=== PATIENT | female | born 1945 | race Caucasian/White ===

== ENCOUNTER 2021-07-18 10:30 | Outpatient (RCR) | payer MEDICARE, SELFPAY ==
--- NOTE | 2021-05-30 13:51 | PTOPEVAL ---
PHYSICAL THERAPY INITIAL EVALUATION. Thank you for referring Roxy Garner to [facility].? The patient is scheduled to be seen for therapy? 1x/week for 4 weeks. Please review, sign, date and return this plan of care CHRISTO. I agree with and certify that the following plan of care is medically necessary. Referring Physician Date Attending Provider: Betsy Mendoza, PLOW MECHANIC-C *PT Outpatient Evaluation Start: 05/30/21 Evaluation Information Diagnosis Gait abnormalities Onset 2 months Subjective Information Pt states around [place] she Query Text:As Reported By Patient/ got really sick from what she Family thinks was food poisoning, she was so sick she said she could not move. After that she got bronchitis, a sinus infection, and pink eye increasing her weakness even more. Pt states they decreased her water pill and since then she has been orthostatic. Pt states she has always been independent in daily life, could carry in heavy groceries . Pt states bending over to get something out of a low drawer or cabinet she is afraid she cannot get back up. Around [place] she was able to carry a basket of laundry downstairs without any issues. Pts weight has been around 90 pounds, she went down to 60s, now holding in 70 pounds. Pain Assessment 0 Pain Score Pain Score 0: Self Report Lower Extremity Range of Motion General Lower Extremity Range of Motion WFL/Left,WFL/Right Lower Extremity Muscle Strength Testing Gross Lower Extremity Strength Grossly 4-/5 in B LE Of note: decreased strength in hip flexion, extension, abduction, and knee flexion Muscle Length Testing Muscle Length Testing Right Prone Knee Flexor Muscle Length 90 Left Prone Knee Flexor Muscle Length 90 Balance Assessment Timed Up and Go Test (TUG) (Seconds) 8 Assistive Devices None 5 Time Sit to Stand Time in Seconds 13 5 Time Sit to Stand Comments Without the use of UEs Gait Assessment Gait Pattern Narrow Based Gait Other Gait Observations Pt has an increased g
--- NOTE | 2021-06-26 16:04 | PCPTNOTE ---
Patient called & cancelled scheduled re-evaluation this date due to no transportation. She is going to call back to reschedule.
--- NOTE | 2021-07-18 11:11 | PTOPEVAL ---
PHYSICAL THERAPY PROGRESS REPORT AND DISCHARGE SUMMARY. Thank you for referring Roxy Garner to [facility].? The patient is to be discharged from skilled physical therapy services . Please review, sign, date and return this plan of care CHRISTO. I agree with and certify that the following plan of care is medically necessary. Referring Physician Date Attending Provider: Betsy Mendoza, SHOEMAKER APPRENTICE-C Evaluation Information Diagnosis Gait abnormalities Onset 2 months Subjective Information Pt states she thinks she is Query Text:As Reported By Patient/ doing well. She was able to go Family to the grocery store with her daughter yesterday and walk around the store. Pt states she has been able to walk up and down the stairs. Pt was able to help her family cook Easter dinner. Pain Assessment Pain Score 0: Self Report Lower Extremity Range of Motion General Lower Extremity Range of Motion WFL/Left,WFL/Right Lower Extremity Muscle Strength Testing General Lower Extremity Strength WFL/Left,WFL/Right Gross Lower Extremity Strength Grossly 4+/5 in B LE Muscle Length Testing Right Prone Knee Flexor Muscle Length 120 Left Prone Knee Flexor Muscle Length 120 Gait Assessment Total Distance Walked (feet) 385 2 Minute Walk Gait Speed Score (feet/ 3.20 second) PT Clinical Summary Roxy presents to therapy today for her progress report following 2 therapy visits and at home participation in a home exercise program and daily walking program. Today she demonstrates improvement in her strength, function, and endurance. She reports 90% improvement in return to baseline function. She has met all of her functional goals at this time. She is to be discharged from skilled physical therapy services at this time with instructions to continue her HEP and walking program, and to follow up with her referring provider if any new symptoms occur. PT Services Indicated No Treatment Frequency and Duration to be discharged
== END 2021-07-18 16:22 | disposition home or self-care (01) ==
LOC: ANHPT 10:30
PROVIDERS: PCP Internal Medicine; Visit Provider Nurse Practitioner
DX: R26.89 Other abnormalities of gait and mobility (principal)
CPT/HCPCS: 97110; 97161

== ENCOUNTER 2021-09-23 02:09 | Inpatient (IN) | payer MEDICARE, SELFPAY ==
[2021-09-23] VITALS (52 sets, daily range): BP systolic 98–165; BP diastolic 40–135; PULSE 83–136; RESP 14–43; TEMP 35.9–36.5; O2SAT 75–100; BMI 23.2
--- NOTE | 2021-09-23 | ECHO_ITS ---
Patient Info Name: Roxy Garner Age: 76 years : 1945 Gender: Female Ht: 61 in Wt: 122 lbs BSA: 1.55 m2 HR: 88 bpm BP: 117 / 40 mmHg Heart Rhythm: Sinus Rhythm Technical Quality: Good Exam Date: 09/23/2021 2:58 PM Exam Location: [facility] Pulmonary Exam Room: 203 Patient Status: Inpatient Admit Date: 09/23/2021 Staff Ordering Physician: Lina Butts DO Customer Training Specialist: Sunni Freeman RDCS Attending Provider: Darlene Grewal MD Referring Physician: Beckie COLBERT; Exam Type: CA echo doppler color flow Study Info Indications - heart failure Complete two-dimensional, color flow and Doppler transthoracic echocardiogram is performed. Summary 1. Complete two-dimensional, color flow and Doppler transthoracic echocardiogram is performed. 2. Left ventricular chamber dimension is moderately enlarged. 3. Left ventricular systolic function is severely reduced, estimated at 25-30%. 4. Left atrial chamber dimension is mildly enlarged. 5. There is moderate aortic valve regurgitation. 6. There is mild mitral valve regurgitation. Left Ventricle Left ventricular chamber dimension is moderately enlarged. Left ventricular systolic function is severely reduced, estimated at 25-30%. The left ventricular diastolic function is grade I diastolic dysfunction. Right Ventricle Right ventricular chamber dimension is normal. Left Atria Left atrial chamber dimension is mildly enlarged. Right Atria Right atrial chamber dimension is normal. Aortic Valve The aortic valve is trileaflet. There is mild aortic valve sclerosis. There is moderate aortic valve regurgitation. Pulmonic Valve The pulmonic valve is normal. There is mild pulmonic regurgitation. Mitral Valve The mitral valve has normal leaflets. There is mild mitral valve regurgitation. Tricuspid Valve The tricuspid valve leaflets are normal. Pericardium/Pleural The pericardium appears normal. Aorta The aortic root size at the sinus of Valsalva is normal. Left Ventricular Outflow Tract Name Value Normal LVOT 2D LVOT Diameter 2.0 cm LVOT Doppler LVOT Peak Gradient 3 mmHg LVOT Mean Gradient 1 mmHg LVOT VTI 16 cm LVOT VTI/AV VTI Ratio 0.9 LVOT Stroke Volume 49 ml LVOT CO 10.3 l/min LVOT CI 6.6 l/min/m2 Pulmonic Valve Name Value Normal PV Doppler PV Peak Gradient 2 mmHg Mitral Valve Name Value Normal MV Doppler
--- NOTE | ~2021-09-23 | US_ITS ---
US venous doppler [facility] DATE: 09/23/2021 13:12 INDICATION: Swelling of the lower extremities TECHNIQUE: Real-time and color flow imaging and Doppler analysis of the veins of the lower extremitie s COMPARISON: None FINDINGS: The greater saphenous veins are patent. There is spontaneous and phasic flow and normal aug mentation and color flow signal and normal compression of the deep veins of both lower extremities. IMPRESSION: Negative examination Reviewed, dictated and finalized at [facility]. Reviewed, dictated and finalized at location B. IMPRESSION: Negative examination
--- NOTE | ~2021-09-23 | XR_ITS ---
EXAMINATION: XR chest 1V portable DATE: 09/23/2021 03:08 INDICATION: Dyspnea TECHNIQUE: frontal view of the chest was obtained. COMPARISON: Chest radiograph dated 01/10/2016 FINDINGS: . Hyperexpansion of lungs are clear consistent with emphysema better appreciated on prior CT dated 07/01/2016. Diffuse patchy airspace opacities throughout both lungs relatively sparing the left apex. Mor e dense opacities at the left lower lung zone and right costophrenic angle suggesting small right and [id number] left pleural effusions. Calcified nodule in the right lower lung zone with multipl e splenic calcifications consistent with old granulomatous disease. The cardiomediastinal silhouette is within normal limits for AP technique. IMPRESSION: 1. Diffuse bilateral lung disease which could represent pneumonia or pulmonary edema. 2. More dense opacities at the bilateral lower lung zones which could represent small to moderate lef t and small right pleural effusion, atelectasis, pneumonia or some combination thereof. 3. Emphysema. Reviewed, dictated and finalized at location A. IMPRESSION: 1. Diffuse bilateral lung disease which could represent pneumonia or pulmonary edema. 2. More dense opacities at the bilateral lower lung zones which could represent small to moderate left and small right pleural effusion, atelectasis, pneumoni a or some combination thereof. 3. Emphysema.
--- NOTE | ~2021-09-23 | XR_ITS ---
EXAMINATION: XR chest 1V portable DATE: 09/26/2021 06:01 INDICATION: Congestive heart failure TECHNIQUE: frontal view of the chest was obtained. COMPARISON: Chest radiograph dated 09/23/2021 FINDINGS: Persistent elevation of the left mid diaphragm. Significant improvement in prior extensive interstiti al and airspace opacities throughout the right lung with mild residual reticular opacities at the per ipheral right upper lung zone and along the right lung base. More prominent but still improved opacit ies in the left lower lung zone. Decreasing small bilateral pleural effusions with blunting at costop hrenic angles. Underlying emphysema with hyperexpansion of lungs, more prominent on the right with re lative elevation the left hemidiaphragm. Calcified nodule at the right lung base and several small sp lenic calcifications likely consistent with old granulomatous disease. No pneumothorax. The cardiomed iastinal silhouette is normal. IMPRESSION: 1. Significant improvement in diffuse bilateral interstitial and airspace opacities with residual opa cities most prominent in the left lower lung zone which could represent pulmonary edema, pneumonia, a telectasis or some combination thereof. 2. Decreasing small bilateral pleural effusions. 3. Emphysema. Reviewed, dictated and finalized at location A. IMPRESSION: 1. Significant improvement in diffuse bilateral interstitial and airspace opaci ties with residual opacities most prominent in the left lower lung zone which c ould represent pulmonary edema, pneumonia, atelectasis or some combination ther eof. 2. Decreasing small bilateral pleural effusions. 3. Emphysema.
--- NOTE | ~2021-09-23 | US_ITS ---
EXAMINATION: US arterial ankle brachial ind DATE: 09/23/2021 12:37 INDICATION: Loss of pulses in the lower extremities with cool feet and peripheral vascular disease ri sk factors of hypertension, heart failure and prior smoking. TECHNIQUE: Segmental pressures and plethysmographic and Doppler waveforms of the brachial and lower e xtremity arteries were obtained. COMPARISON: None. FINDINGS: Right and left brachial artery pressures of 130 mm Hg and 140 mm Hg, respectively, are concordant (no rmal difference <= 30 mmHg). The right ankle-brachial index (JEANIE) is 0.44 (normal >= 0.9-1.0). The right great toe-brachial index (TBI) is 0.26 (normal >= 0.65). Arterial Doppler waveforms are biphasic with brisk systolic upstrokes at both right posterior tibial and dorsalis pedis arteries. The left JEANIE is 0.44. The left TBI is 0.26. Arterial Doppler waveforms are biphasic with brisk systol ic upstrokes at both left posterior tibial and dorsalis pedis arteries. IMPRESSION: 1. Arterial occlusive disease to the bilateral lower limbs with severely decreased bilateral ABIs and TBIs. Reviewed, dictated and finalized at location A. IMPRESSION: 1. Arterial occlusive disease to the bilateral lower limbs with severely decrea sed bilateral ABIs and TBIs.
--- NOTE | 2021-09-23 02:21 | ECG_ITS ---
Measurements Intervals [place] Rate: 103 P: [place]: 0 QRS: -61 QRSD: 139 T: 116 QT: 329 QTc: 431 Interpretive Statements SINUS RHYTHM WITH FREQUENT AND CONSECUTIVE PVCS INTRAVENTRICULAR CONDUCTION DELAY WITH REPOLARIZATION ABNORMALITY ABNORMAL ECG NO PREVIOUS ECG AVAILABLE FOR COMPARISON Electronically Signed On 09-23-2021 7:22:04 CDT by Haider Joel M.D.
--- NOTE | 2021-09-23 02:22 | ED.GENADULT ---
HPI - General Adult General Chief complaint: Shortness of Breath/Dyspnea Stated complaint: shortness of breath Time Seen by Provider: 09/23/21 02:14 History of Present Illness HPI narrative: Patient 76-year-old female who presents emergency department with chief complaint of shortness of breath. Patient called EMS this evening after she was having severe shortness of breath was found to be extremely tachypneic and not open to provide much history. Per records the patient has an EF in the 30s and has significant congestive heart failure history. The patient denies pain Related Data Allergies Allergy/AdvReac Type Severity Reaction Status Date / Time ciprofloxacin Allergy Mild Nausea and Verified 05/21/21 14:00 Vomiting codeine Allergy Unknown Congested Verified 05/21/21 14:00 Sulfa (Sulfonamide Allergy Unknown Photosensit Verified 05/21/21 14:00 Antibiotics) ivity Review of Systems Review of Systems: A 10 system review of systems was completed on the patient and is negative except for what is stated in the HPI. Nursing and ancillary documentation was reviewed. [facility] Past Medical History Medical History Endometrial thickening on ultrasound Surgical History Surgical History H/O dilation and curettage Family History Family History Sibling Family history of elevated blood lipids Acute myocardial infarction Mother Family history of diabetes mellitus in first degree relative Diabetes mellitus Social History Social History Smoking packs per day: 0.5 Smoking cigarettes per day: 10.0 Years smoked: 30 Smoking pack-years: 15.00 Smoking status: Former smoker Tobacco type: cigarettes Second hand tobacco smoke exposure: Yes Smoking end date: 03/30/21 Alcohol intake: never Substance use: never Substance use type: does not use Exam Narrative: GENERAL: Ill-appearing thin and cachectic mottled diaphoretic appears to be in moderate HEAD: Normocephalic, atraumatic. EYES: PERRLA and EOMI. ENT: Nares clear, no rhinorrhea or epistaxis. Mucous membranes moist. NECK: Supple. CHEST: Moderate respiratory distress crackles present bilaterally HEART: Tachycardic rate and rhythm. No murmur heard. Normal peripheral pulses. ABDOMEN: Soft, nontender, nondistended, normal active bowel sounds. EXTREMITIES: Normal range of motion. No edema. SKIN: Diaphoretic mottled. NEURO: No focal deficits. Alert and oriented x3. PSYCH: Normal mood and affect. Course Vital Signs Vital signs: Vital Signs Pulse Rate 107 H 09/23/21 02:14 Respiratory Rate 36 H 09/23/21 02:14 Pulse Oximetry 75 L 09/23/21 02:14 Oxygen Delivery Room Air 09/23/21 02:14 Pulse Rate 107 H 09/23/21 02:14 Respiratory Rate 36 H 09/23/21 02:14 Pulse Oximetry 75 L 09/23/21 02:14 Oxygen Delivery Room Air 09/23/21 02:14 Medical Decision Making Vital Signs Vital Signs: Vital Signs Pulse Rate 107 H 09/23/21 02:14 Respiratory Rate 36 H 09/23/21 02:14 Pulse Oximetry 75 L 09/23/21 02:14 Oxygen Delivery Room Air 09/23/21 02:14 Pulse Rate 107 H 09/23/21 02:14 Respiratory Rate 36 H 09/23/21 02:14 Pulse Oximetry 75 L 09/23/21 02:14 Oxygen Delivery Room Air 09/23/21 02:14 Lab Data Result diagrams: 09/23/21 02:44 09/23/21 02:44 Labs: Lab Results 09/23/21 09/23/21 09/23/21 Range/Units 02:29 02:44 02:44 WBC 10.1 H (4.5-10.0) K/mm3 RBC 5.63 H (4.2-5.4) M/mm3 Hgb 17.4 H (12.0-15.0) g/dL Hct 55.5 H (37.0-47.0) % MCV 98.6 (80-100) fl MCH 30.9 (26-34) pg MCHC 31.4 L (32-36) g/dl RDW 12.9 (11.5-14.5) % Plt Count 154 (150-375) k/mm3 MPV 10.3 (7.4-10.4) fl Immatu
[2021-09-23 02:51] LABS: Basophils Absolute Auto 0.1 K/mm3 (0.0-0.1); Basophils Percent Auto 0.7 % (0.2-1.2); Eosinophils Absolute Auto 0.1 K/mm3 (0-0.3); Eosinophils Percent Auto 0.7 % (0-4.4); Hematocrit 55.5 % (37.0-47.0); Hemoglobin 17.4 g/dL (12.0-15.0); Lymphocytes Absolute Auto 5.97 K/mm3 (0.9-3.2); Lymphocytes Percent Auto 59.4 % (18.3-44.2); Mean Corpuscular HGB Conc 31.4 g/dl (32-36); Mean Corpuscular Hemoglobin 30.9 pg (26-34); Mean Corpuscular Volume 98.6 fl (80-100); Mean Platelet Volume 10.3 fl (7.4-10.4); Monocytes Absolute Auto 0.4 K/mm3 (0.1-0.6); Monocytes Percent Auto 3.9 % (2.6-8.5); Neutrophils Absolute Auto 3.4 K/mm3 (1.3-6.7); Neutrophils Percent Auto 33.3 % (45.5-73.1); Platelet Count Result 154 k/mm3 (150-375); Red Blood Count 5.63 M/mm3 (4.2-5.4); Red Cell Distribution Width 12.9 % (11.5-14.5); White Blood Count 10.1 K/mm3 (4.5-10.0)
[2021-09-23 03:00] LABS: INR 1.2; Prothrombin Time 14.4 Seconds (11.1-14.7)
[2021-09-23 03:02] LABS: Alanine Aminotransferase 25 U/L (6-35); Albumin Level 4.1 g/dL (3.5-5.1); Alkaline Phosphatase 73 U/L (38-126); Anion Gap 13 mmol/L (8-16); Aspartate Amino Transferase 30 U/L (14-36); Bilirubin,Total 1.5 mg/dL (0.2-1.3); Blood Urea Nitrogen 12 mg/dL (7-17); Calcium 9.1 mg/dL (8.4-10.2); Carbon Dioxide 21 mmol/L (22-30); Chloride 103 mmol/L (98-107); Estimated Glomerular Filt Rate 48; Glucose 282 mg/dL (65-110); Magnesium 2.3 mg/dL (1.6-2.3); Sodium 137 mmol/L (137-145)
[2021-09-23] MEDS: NITROGLYCERIN OINTMENT 1 INCH DOSE TRANSDERM ×5 (03:08→23:07)
[2021-09-23] MEDS: FUROSEMIDE INJ 40 MG/4 ML VIAL IV PUSH ×3 (03:08→20:44)
[2021-09-23] MEDS: ALBUTEROL SULFATE NEB 2.5 MG/3 ML INH (03:10)
[2021-09-23] MEDS: IPRATROPIUM BR 0.02% INH SOLN 0.5 MG/2.5 ML VIAL (03:10)
[2021-09-23 03:14] LABS: NT Pro B Type Natriuretic Pept 16200 pg/mL (5-100); Troponin I 0.032 ng/mL (0.000-0.034)
[2021-09-23 03:20] LABS: Alveolar/Arterial O2 Gradient 350.9 mmHg; Base Excess ABG -14.8 mEq/l (+/-2.0); Fractional Inspired Oxygen 100 %; HCO3 ABG 15.5 mEq/l (22.0-26.0); Oxygen Content ABG 25.5 %vol (16.0-22.0); Oxygen Saturation ABG 99.5 % (95.0-100.0); Oxyhemoglobin 98.6 % THb (90.0-100.0); PO2 ABG 309.1 mmHg (80.0-100.0); PO2 FiO2 Ratio Arterial Blood 3.09 %; Total Hemoglobin 17.9 g/dL (12.0-18.0)
[2021-09-23 03:22] LABS: Site Drawn LEFT BRACHIAL; pH ABG 7.085 (7.350-7.450)
[2021-09-23 03:23] LABS: Device NON-INVASIVE VENT; Non-Invasive Expiratory Pressure 5 CMH2O; Non-Invasive Inspiratory Pressure 10 CMH2O; Non-Invasive Vent Rate 16 /MIN
[2021-09-23 03:27] LABS: SARS-CoV-2 RNA PCR Negative
[2021-09-23 05:14] LABS: Appearance Urine Clear (Clear); Bilirubin Urine Negative (Negative); Blood Urine Trace-lysed (Negative); Color Urine Yellow (Yellow); Glucose Urine UA Trace mg/dL (Negative); Ketones Urine Negative (Negative); Leukocyte Esterase Ur Negative LEU/UL (Negative); Nitrate Urine Negative (Negative); Protein Urine 1+ mg/dL (Negative); Urobilinogen Urine 0.2 mg/dL (<2.0); pH Urine 5.5 (5.0-9.0)
[2021-09-23 05:17] LABS: Mucus Urine Rare /lpf; RBC Urine 0-2 /hpf (0-2); Squamous Epithelial Cell Urine Rare /hpf (Few)
[2021-09-23 05:18] LABS: Add Urine Microscopic? YES
[2021-09-23 05:48] LABS: Lactic Acid Reflex 3.1 mmol/L (0.7-2.0)
--- NOTE | 2021-09-23 06:38 | PC.NURSE ---
This patient, Roxy Garner, was admitted to IMU Room 203-01. Patient/family oriented to hospital policies and general routines including ID bracelet, bed and alarms, visiting hours, pain management, procedures, bathroom and other care routines, personal items, smoking policy, room service/diet, and visiting hours. Information on how to activate the Rapid Response Team has been discussed. Patient/Family are encouraged to report perceived risks to care and to ask questions if they do not understand what they are told or what they should do.
--- NOTE | 2021-09-23 07:29 | ECG_ITS ---
Measurements Intervals [place] Rate: 90 P: 11 MA: 118 QRS: -20 QRSD: 92 T: -14 QT: 403 QTc: 495 Interpretive Statements SINUS RHYTHM WITH FREQUENT VENTRICULAR PREMATURE COMPLEXES VOLTAGE EVIDENCE OF LEFT VENTRICULAR HYPERTROPHY COMPARED TO ECG 09/23/2021 02:28:51 LESS VENTRICULAR ECTOPIC ACTIVITY Electronically Signed On 09-23-2021 15:46:42 CDT by Haider Joel M.D.
[2021-09-23] MEDS: IPRATROPIUM BR 0.02% INH SOLN 0.5 MG/2.5 ML VIAL INHALATION ×3 (07:54→20:47)
[2021-09-23] MEDS: ALBUTEROL SULFATE NEB 2.5 MG/3 ML INH 5 MG INHALATION ×3 (07:54→20:47)
[2021-09-23 08:35] LABS: Reflex Lactic Acid Yes or No Add Lactic
[2021-09-23 09:10] LABS: Alveolar/Arterial O2 Gradient 165.5 mmHg; Base Excess ABG -0.9 mEq/l (+/-2.0); Fractional Inspired Oxygen 40 %; HCO3 ABG 22.3 mEq/l (22.0-26.0); Modified Allen's Test Pass; Oxygen Content ABG 22.6 %vol (16.0-22.0); Oxygen Saturation ABG 96.5 % (95.0-100.0); Oxyhemoglobin 95.7 % THb (90.0-100.0); PCO2 ABG 33.3 mmHg (35.0-45.0); PO2 ABG 81.4 mmHg (80.0-100.0); PO2 FiO2 Ratio Arterial Blood 2.04 %; Site Drawn RIGHT RADIAL; Total Hemoglobin 16.8 g/dL (12.0-18.0); pH ABG 7.443 (7.350-7.450)
[2021-09-23 09:11] LABS: Device BIPAP
[2021-09-23 09:12] LABS: Expiratory Pressure 5 cmH2O; Inspiratory Pressure 10 cmH2O
[2021-09-23 09:48] LABS: Lactic Acid 2.5 mmol/L (0.7-2.0)
[2021-09-23 10:06] LABS: Troponin I 0.932 ng/mL (0.000-0.034)
--- NOTE | 2021-09-23 11:07 | PC.NURSE ---
Patient consents for all medical information be given to Chantal Cedeno.
--- NOTE | 2021-09-23 13:10 | PC.NURSE ---
Notified Dr. Butts of Patient Ankle Brachial Index.
--- NOTE | 2021-09-23 13:25 | PM.CNCAR ---
Assessment and Plan Assessment and plan (1) Acute exacerbation of CHF (congestive heart failure): Code(s): I50.9 - Heart failure, unspecified Status: Acute (2) Chronic combined systolic and diastolic heart failure: Code(s): I50.42 - Chronic combined systolic (congestive) and diastolic (congestive) heart failure Status: Acute Plan This is a 76-year-old lady known to have cardiomyopathy and valvular heart disease with chronic aortic regurgitation. She enters the hospital with significant dyspnea and respiratory acidosis requiring placement on a BiPAP device in the middle of the night. This has helped significantly she is no longer acidemic and appears to be comfortable other than complaining about the mask. She is receiving some intravenous furosemide which I think is appropriate she does sound somewhat congested on exam. Undoubtedly she also has significant underlying lung disease with many years of smoking which she has fortunately quit. This patient SI stated above is known to have significant aortic valve regurgitation but I do not believe she is reasonable candidate for aortic valve replacement. We will treat therefore continue to treat her medically. I will obtain an echocardiogram today and determine other reasonable medical adjustments. Now that she is in the hospital she would probably benefit from titrating her medications to optimal guideline directed medical therapy. She has been resistant to this in the past. There is significant concern being expressed on the floor and apparently by the hospitalist that she may have acute arterial insufficiency of the lower extremities. By physical exam she clearly has lower extremity vascular disease however she is not complaining of leg pain and does not appear to have a critical limb ischemia by physical exam Haider Joel MD [facility] History of Present Illness History of Present Illness Consult date/time: 09/23/21 13:25 Consult reason: shortness of breath Reason For Visit: Acute Congestive Heart Failure Exacerbation Narrative: This is a 76-year-old woman I am seeing at the request of the hospitalist because of decompensated congestive heart failure. This is a patient I have been following in my office for a while who has a dilated cardiomyopathy and significant aortic valve regurgitation. She has been followed for a number of years on relatively minimal medical therapy including low doses of carvedilol, ramipril and spironolactone. She has been stable for a number of years on these medications and up titration of her doses was discussed and recommended but she had been resistant to any of that. She also has a history of chronic cigarette smoking having quit recently and has evidence of emphysema on chest x-rays in the past. The patient is extremely thin and frail. It was my recommendation when I saw her initially and since then that she is not a acceptable candidate for aortic valve surgery. We understand that she does have LV dysfunction and significant aortic regurgitation but it did not feel like it was reasonable to consider her a candidate for aortic valve replacement. She was seen in my office as recently as 08/22/2021 at which time she did not offer any cardiovascular complaints and was feeling well. Her daughter is in the room with her at this time says that just this past weekend she was shopping with the patient and she was walking through stores without any difficulty with breathing. She came into the emergency room at 2:00 a.m. in the morning last night because of severe shortness of breath and respiratory extremis. She was very acidemic with a pH of 7.0 with acute respiratory acidosis and she was treated with a BiPAP noninvasive ventilator and some furosemide IV. She was admitted to the IMU for further evaluation and management. The BiPAP is in place and she reports the mask is uncomfortable but she does not appear to be having any air hunger at this time.
--- NOTE | 2021-09-23 13:29 | PC.NURSE ---
Patient has absent foot pulses, notified Dr. Butts and Dr. Joel. Patient is not complaining of pain, Bilateral legs and feet are warm to touch and have normal color, no swelling detected. Patient denies loss of sensation.
--- NOTE | 2021-09-23 18:42 | PM.IMHP ---
H&P: HPI History of Present Illness Date/Time: 09/23/21 18:42 Chief Complaint: 68-year-old female with past medical history significant for COPD, cardiomyopathy with valvular heart disease including aortic regurgitation is presenting to the hospital with shortness of breath and fatigue. In the ER, she was found to have elevated troponin, elevated BNP, she was acidotic on ABG and started on BiPAP, ECG mildly abnormal with T-wave inversions. Cardiology was consulted and states that her EF is likely 25-30% and anticipate starting Entresto while she is inpatient as well as IV diuresis with Lasix. Patient denies chest pain at this time. No fevers or chills. No sick contacts or recent travel. No nausea vomiting or diarrhea. No abdominal pain. No dysuria or suprapubic tenderness. Once on the floor, nursing staff noted difficulty getting Doppler pulses. ABIs were ordered and showed severe vascular disease. Of note, patient's family is in room and states that she was being weaned off of Aldactone on an outpatient basis. Apparently she was experiencing orthostatic hypotension. Review of Systems Review of Systems: 12 point review of systems was assessed and was negative except as noted in the HPI [facility] Past Medical History Medical History Endometrial thickening on ultrasound Surgical History Surgical History H/O dilation and curettage Family History Family History Sibling Family history of elevated blood lipids Acute myocardial infarction Mother Family history of diabetes mellitus in first degree relative Diabetes mellitus Social History Social History Smoking packs per day: 0.5 Smoking cigarettes per day: 10.0 Years smoked: 30 Smoking pack-years: 15.00 Smoking status: Former smoker Tobacco type: cigarettes Second hand tobacco smoke exposure: Yes Smoking end date: 03/30/21 Alcohol intake: never Substance use: never Substance use type: does not use Spiritual care concerns: No Meds Home Medications and Allergies Home Medications Medication Instructions Recorded Confirmed Type spironolactone 25 mg tablet See Rx Instructions .Route 07/19/21 09/23/21 Rx .COMPLEX #45 tabs carvedilol 3.125 mg tablet 3.125 mg PO Q12H #180 tabs 09/10/21 09/23/21 Rx ramipril 2.5 mg capsule See Rx Instructions .Route 09/10/21 09/23/21 Rx .COMPLEX #90 caps Allergies Allergy/AdvReac Type Severity Reaction Status Date / Time ciprofloxacin Allergy Mild Nausea and Verified 05/21/21 14:00 Vomiting codeine Allergy Unknown Congested Verified 05/21/21 14:00 Sulfa (Sulfonamide Allergy Unknown Photosensit Verified 05/21/21 14:00 Antibiotics) ivity Vital Signs Vital Signs - 24 hr 09/23/21 02:14 09/23/21 02:26 09/23/21 03:59 Temperature Pulse Rate 107 H 116 H 106 H Respiratory Rate 36 H 40 H 35 H Blood Pressure Pulse Oximetry 75 L 100 96 Oxygen Delivery Room Air BiPAP BiPAP Oxygen Flow Rate Fraction of Inspired Oxygen 09/23/21 03:10 09/23/21 05:35 09/23/21 05:50 Temperature 96.7 F L Pulse Rate 104 H 94 Respiratory Rate 38 H 32 H Blood Pressure 104/46 L Pulse Oximetry 100 Oxygen Delivery BiPAP Oxygen Flow Rate Fraction of Inspired Oxygen 60 09/23/21 02:32 09/23/21 02:41 09/23/21 02:45 Temperature Pulse Rate 109 H 101 H 106 H Respiratory Rate 37 H 40 H 43 H Blood Pressure 154/92 H Pulse Oximetry 100 100 Oxygen Delivery Oxygen Flow Rate Fraction of Inspired Oxygen 09/23/21 02:51 09/23/21 03:00 09/23/21 03:34 Temperature Pulse Rate 120 H 108 H 98 Respiratory Rate 38 H 28 H 20 Blood Pressure 165/135 H Pulse Oximetry 100 Oxygen Delivery Oxygen Flow Rate Fraction of Inspired Oxygen 09/23/21 0
[2021-09-23] MEDS: WATER FOR IRRIGATION, STERILE 1,000 ML BOTTLE 1000 ML (19:27)
[2021-09-23] MEDS: carvediloL 3.125 MG TABLET PO (20:44)
--- NOTE | 2021-09-23 21:43 | ECG_ITS ---
Measurements Intervals [place] Rate: 122 P: [place]: 0 QRS: -32 QRSD: 92 T: 267 QT: 322 QTc: 460 Interpretive Statements ATRIAL FIBRILLATION WITH RAPID VENTRICULAR RESPONSE WITH ABERRANT CONDUCTION OR VENTRICULAR PREMATURE COMPLEXES MARKED LEFT AXIS DEVIATION ST DEVIATION AND T-WAVE ABNORMALITY, CONSIDER ISCHEMIA Electronically Signed On 09-24-2021 10:53:03 CDT by Luis Antonio Cazares M.D.
--- NOTE | 2021-09-23 22:48 | PC.NURSE ---
Pt's heart rate elevated. EKG obtained. Pt in Afib RVR. Pt unsure if she has a hx of Afib. Dr. Stewart notified that pt's HR has been sustaining 130s-140s even after her scheduled dose of Coreg. No new orders. Dr. Stewart states they will see the pt in the morning. Pt also very agitated about wearing her bipap overnight and because she had a robbins catheter. Pt insisting that robbins catheter be removed.
[2021-09-24] VITALS (24 sets, daily range): BP systolic 96–131; BP diastolic 38–80; PULSE 68–133; RESP 12–24; TEMP 36.1–36.7; O2SAT 96–99
[2021-09-24] MEDS: ALBUTEROL SULFATE NEB 2.5 MG/3 ML INH 5 MG INHALATION ×3 (02:30→19:56)
[2021-09-24] MEDS: IPRATROPIUM BR 0.02% INH SOLN 0.5 MG/2.5 ML VIAL INHALATION ×3 (02:30→19:56)
--- NOTE | 2021-09-24 03:31 | PC.NURSE ---
Dr. Stewart called IMU to check on pt. Updated that pt appears to be in and out of Afib, HR ranging from 90s-140s. No complaints from pt. No new orders.
[2021-09-24] MEDS: NITROGLYCERIN OINTMENT 1 INCH DOSE TRANSDERM ×4 (05:37→23:40)
[2021-09-24] MEDS: FUROSEMIDE INJ 40 MG/4 ML VIAL IV PUSH (09:23)
[2021-09-24] MEDS: carvediloL 3.125 MG TABLET PO (09:23)
--- NOTE | 2021-09-24 10:08 | PM.PNCARD ---
Progress Note: A&P Assessment and Plan (1) Chronic combined systolic and diastolic heart failure: Code(s): I50.42 - Chronic combined systolic (congestive) and diastolic (congestive) heart failure Status: Acute Assessment and Plan: Improved with diuresis. VANNA has been on old since admission, intention is to start Entresto after VANNA washout, however she is very resistant to making any adjustments to her medical regimen at this time. Ideally would like to optimize her medical regimen with addition of spironolactone, SGLT2 inhibitor. She does have some prerenal azotemia today, seems essentially euvolemic on exam. Will hold furosemide at this point. (2) Irregular heart rhythm: Code(s): I49.9 - Cardiac arrhythmia, unspecified Status: Acute Assessment and Plan: Sinus rhythm with very frequent ventricular and some atrial ectopy. Also some bursts of atrial tachycardia. Will increase her coreg dose to 6.25mg b.i.d. Check TSH. (3) Respiratory failure: Code(s): J96.90 - Respiratory failure, unspecified, unspecified whether with hypoxia or hypercapnia Status: Acute Assessment and Plan: Secondary to volume overload/CHF. Improved. On minimal supplemental oxygen at this point. (4) Aortic stenosis: Code(s): I35.0 - Nonrheumatic aortic (valve) stenosis Status: Acute Assessment and Plan: Moderate. Being treated medically. Subjective Date/time seen: 09/24/21 10:08 Cardiology follow up for CHF Feeling better today. Her oxygen is being weaned and she is not having any shortness of breath. Does feel palpitations from time to time. Review of Systems Constitutional: Constitutional: Reports fatigue Eyes: Eyes: Reports no additional eye complaints ENT: Reports system reviewed and no additional complaints, except as documented Cardiovascular: Cardiovascular: Reports as per HPI and Reports dyspnea Respiratory: Respiratory: Reports dyspnea Gastrointestinal: Gastrointestinal: Reports no additional gastrointestinal complaints Musculoskeletal: Musculoskeletal: Reports arthralgias Integumentary/Breasts: Skin/Breast: Reports system reviewed and no additional complaints, except as docu Neurologic: Reports system reviewed and no additional complaints, except as documented Endocrine: Endocrine: Reports no additional endocrine complaints and Reports fatigue Hematologic/Lymphatic: Hematologic/Lymphatic: Reports no additional hematologic/lymphatic complaints Allergic/Immunologic: Allergic/Immunologic: Reports no additional allergic/immunologic complaints Exam Const: General: no acute distress Other: Thin, frail elderly lady lying comfortably in bed. Daughters at the bedside. HENMT: Mouth: Yes moist mucous membranes Eyes: Sclera: sclerae normal Neck: Neck: supple Thyroid: thyroid normal Carotids: normal carotid upstroke and no bruits Resp: Auscultation: crackles (faint crackles L base ) and diminished lung sounds Cardio: Rate: regular rate Rhythm: regular rhythm Heart sounds: S1 normal heart sound present, S2 normal heart sound present and Murmur heart sound present GI: Auscultation: normal bowel sounds Skin: General skin exam: normal color Neuro: General: gait normal Other: Normal cognition Extrem: Other: No peripheral edema. Extremities are warm, pedal pulses are not palpable. Objective Data Vital Signs Vital Signs: Vital Signs - 24 hr 09/23/21 12:00 09/23/21 11:35 09/23/21 14:30 Temperature 36.4 C Pulse Rate 86 92 88 Respiratory Rate 30 H 28 H 29 H Blood Pressure 131/89 Pulse Oximetry 97 98 Oxygen Delivery BiPAP Oxygen Flow Rate Fraction of Inspired Oxygen 09/23/21 14:37 09/23/21 12:00 09/23/21 14:00 Temperature Pulse Rate 91 94 86 Respiratory Rate 29 H Blood Pressure Pulse Oximetry Oxygen Delivery Oxygen Flow Rate Fraction of Inspired Oxygen 09/23/21 12:00 09/23/21
--- NOTE | 2021-09-24 10:51 | PM.IMPN ---
Progress Note: A&P Assessment and Plan (1) Acute exacerbation of CHF (congestive heart failure): Code(s): I50.9 - Heart failure, unspecified Status: Acute Assessment and Plan: Appreciate cardiology consultation, continue IV diuresis (2) Respiratory failure: Code(s): J96.90 - Respiratory failure, unspecified, unspecified whether with hypoxia or hypercapnia Status: Acute Assessment and Plan: Improved with diuresis (3) Peripheral artery disease: Code(s): I73.9 - Peripheral vascular disease, unspecified Status: Acute Assessment and Plan: Severe vascular disease, would consider vascular surgery consultation on outpatient basis, however, patient will be a poor surgical candidate and should probably consider change in code status as opposed to aggressive revascularization, currently asymptomatic (4) Anxiety: Code(s): F41.9 - Anxiety disorder, unspecified Status: Acute Assessment and Plan: Ativan and hydroxyzine as needed Plan Will continue to wean oxygen, IV diuresis with Lasix, Start Entresto per Cardiology for heart failure management,strict I's and O's and daily weights, appreciate cardiology consultation Echo today showed grade 1 diastolic dysfunction with an EF of 25-30% as well as moderate aortic valve regurgitation Subjective Date/time seen: 09/24/21 10:51 Interval history: Patient feels significantly better than yesterday. She is on nasal cannula, 2-3 L as opposed to BiPAP yesterday. No overnight events noted. No chest pain or shortness of breath. No nausea, vomiting or diarrhea. No fevers or chills. Review of Systems Review of Systems: 12 point review of systems was assessed and was negative except as noted in the HPI Exam Narrative: General: Patient resting comfortably in bed, no acute distress HEENT: Atraumatic, normocephalic, mucous membranes moist CV: Regular rate and rhythm, S1, S2, no murmurs rubs or gallops noted Lungs: Clear to auscultation bilaterally, no rales or crackles noted, no wheezes, good air entry Abdomen: Soft, nontender, nondistended Extremities: Normal to inspection, no edema noted Skin: No rashes noted, no lesions or wounds seen Psych: Euthymic, normal affect Neuro: Cranial nerves 2-12 grossly intact, strength 5/5 upper and lower extremities noted Objective Data Vital Signs Vital Signs: Vital Signs - 24 hr 09/23/21 12:00 09/23/21 11:35 09/23/21 14:30 Temperature 97.6 F Pulse Rate 86 92 88 Respiratory Rate 30 H 28 H 29 H Blood Pressure 131/89 Pulse Oximetry 97 98 Oxygen Delivery BiPAP Oxygen Flow Rate Fraction of Inspired Oxygen 09/23/21 14:37 09/23/21 12:00 09/23/21 14:00 Temperature Pulse Rate 91 94 86 Respiratory Rate 29 H Blood Pressure Pulse Oximetry Oxygen Delivery Oxygen Flow Rate Fraction of Inspired Oxygen 09/23/21 12:00 09/23/21 16:00 09/23/21 16:00 Temperature 97.7 F Pulse Rate 98 Respiratory Rate 18 Blood Pressure 164/50 H Pulse Oximetry 97 97 98 Oxygen Delivery BiPAP BiPAP Oxygen Flow Rate Fraction of Inspired Oxygen 09/23/21 16:00 09/23/21 17:40 09/23/21 18:01 Temperature Pulse Rate 93 Respiratory Rate Blood Pressure Pulse Oximetry 98 97 Oxygen Delivery High Flow Nasal Cannula High Flow Nasal Cannula Oxygen Flow Rate 8 7 Fraction of Inspired Oxygen 09/23/21 18:00 09/23/21 20:00 09/23/21 20:44 Temperature 97.6 F Pulse Rate 104 H 111 H 95 Respiratory Rate 20 Blood Pressure 142/70 H Pulse Oximetry 100 Oxygen Delivery Oxygen Flow Rate Fraction of Inspired Oxygen 09/23/21 20:47 09/23/21 20:57 09/23/21 21:02 Temperature Pulse Rate 104 H 104 H 89 Respiratory Rate 26 H 26 H Blood Pressure Pulse Oximetry 99 Oxygen Delivery High Flow Nasal Cannula Oxygen Flow Rate 6 Fraction of Inspired Oxygen 09/23/21 20:00 09/23/21 22:04 09/23/21 23:17
[2021-09-24] MEDS: IPRATROPIUM BR 0.02% INH SOLN 0.5 MG/2.5 ML VIAL (13:39)
[2021-09-24] MEDS: ALBUTEROL SULFATE NEB 2.5 MG/0.5 ML INH 5 MG (13:40)
[2021-09-24 14:43] LABS: Basophils Percent Auto 0.1 % (0.2-1.2); Hematocrit 50.2 % (37.0-47.0); Hemoglobin 16.3 g/dL (12.0-15.0); Immature Granulocyte Absolute 0.06 K/mm3 (0.00-0.031); Immature Granulocyte Percent A 0.4 % (0-0.5); Lymphocytes Percent Auto 10.5 % (18.3-44.2); Mean Corpuscular HGB Conc 32.5 g/dl (32-36); Mean Corpuscular Hemoglobin 30.5 pg (26-34); Mean Platelet Volume 9.6 fl (7.4-10.4); Monocytes Percent Auto 6.8 % (2.6-8.5); Neutrophils Absolute Auto 11.7 K/mm3 (1.3-6.7); Neutrophils Percent Auto 82.2 % (45.5-73.1); Platelet Count Result 189 k/mm3 (150-375); Red Blood Count 5.34 M/mm3 (4.2-5.4); Red Cell Distribution Width 13.2 % (11.5-14.5); White Blood Count 14.2 K/mm3 (4.5-10.0)
[2021-09-24 14:57] LABS: Albumin Level 4.5 g/dL (3.5-5.1); Alkaline Phosphatase 59 U/L (38-126); Anion Gap 10 mmol/L (8-16); Aspartate Amino Transferase 50 U/L (14-36); Bilirubin,Total 1.9 mg/dL (0.2-1.3); Blood Urea Nitrogen 33 mg/dL (7-17); Calcium 9.2 mg/dL (8.4-10.2); Carbon Dioxide 33 mmol/L (22-30); Chloride 94 mmol/L (98-107); Estimated CRCL calculation 28 ml/min; Estimated Glomerular Filt Rate 48; Glucose 107 mg/dL (65-110); Potassium 3.8 mmol/L (3.4-5.0); Sodium 137 mmol/L (137-145)
[2021-09-24 15:06] LABS: Alanine Aminotransferase 34 U/L (6-35)
[2021-09-24 15:25] LABS: Thyroid Stimulating Hormone 0.864 uIU/mL (0.465-4.680)
[2021-09-24] MEDS: carvediloL 6.25 MG TABLET PO (20:35)
[2021-09-25] VITALS (22 sets, daily range): BP systolic 100–126; BP diastolic 47–70; PULSE 56–105; RESP 16–18; TEMP 36.1–36.8; O2SAT 90–98
--- NOTE | 2021-09-25 00:55 | PC.NURSE ---
This patient, Roxy Garner, was transferred to [[facility] room 205 ] on 09/25/21 at 0055. Personal belongings sent with patient. Report given to [VALERIE Fuentes ]. Appropriate documentation sent with patient.
--- NOTE | 2021-09-25 00:57 | PC.NURSE ---
0051 RECEIVED PT FROM IMU TRANSFERRED FROM ROOM 203 TO ROOM 250 IN BED.
[2021-09-25] MEDS: IPRATROPIUM BR 0.02% INH SOLN 0.5 MG/2.5 ML VIAL INHALATION ×4 (02:37→20:52)
[2021-09-25] MEDS: ALBUTEROL SULFATE NEB 2.5 MG/3 ML INH 5 MG INHALATION ×4 (02:37→20:52)
[2021-09-25] MEDS: NITROGLYCERIN OINTMENT 1 INCH DOSE TRANSDERM (05:35)
[2021-09-25 06:04] LABS: Basophils Percent Auto 0.2 % (0.2-1.2); Eosinophils Percent Auto 0.1 % (0-4.4); Hematocrit 44.1 % (37.0-47.0); Hemoglobin 14.3 g/dL (12.0-15.0); Immature Granulocyte Absolute 0.04 K/mm3 (0.00-0.031); Immature Granulocyte Percent A 0.4 % (0-0.5); Lymphocytes Absolute Auto 1.89 K/mm3 (0.9-3.2); Lymphocytes Percent Auto 18.6 % (18.3-44.2); Mean Corpuscular HGB Conc 32.4 g/dl (32-36); Mean Corpuscular Hemoglobin 30.4 pg (26-34); Mean Corpuscular Volume 93.6 fl (80-100); Mean Platelet Volume 9.7 fl (7.4-10.4); Monocytes Absolute Auto 0.8 K/mm3 (0.1-0.6); Monocytes Percent Auto 8.1 % (2.6-8.5); Neutrophils Absolute Auto 7.4 K/mm3 (1.3-6.7); Neutrophils Percent Auto 72.6 % (45.5-73.1); Platelet Count Result 153 k/mm3 (150-375); Red Blood Count 4.71 M/mm3 (4.2-5.4); Red Cell Distribution Width 13.1 % (11.5-14.5); White Blood Count 10.2 K/mm3 (4.5-10.0)
[2021-09-25 06:14] LABS: Alanine Aminotransferase 18 U/L (6-35); Albumin Level 3.5 g/dL (3.5-5.1); Alkaline Phosphatase 55 U/L (38-126); Anion Gap 2 mmol/L (8-16); Aspartate Amino Transferase 36 U/L (14-36); Bilirubin,Total 1.7 mg/dL (0.2-1.3); Blood Urea Nitrogen 30 mg/dL (7-17); Calcium 8.8 mg/dL (8.4-10.2); Carbon Dioxide 32 mmol/L (22-30); Chloride 100 mmol/L (98-107); Estimated CRCL calculation 31 ml/min; Estimated Glomerular Filt Rate > 60; Glucose 94 mg/dL (65-110); Potassium 3.6 mmol/L (3.4-5.0); Sodium 134 mmol/L (137-145)
[2021-09-25] MEDS: carvediloL 6.25 MG TABLET PO ×2 (08:07→20:10)
--- NOTE | 2021-09-25 15:57 | PM.IMPN ---
Progress Note: A&P Assessment and Plan (1) Acute exacerbation of CHF (congestive heart failure): Code(s): I50.9 - Heart failure, unspecified Status: Acute Assessment and Plan: -Will continue to wean oxygen, IV diuresis with Lasix, Start Entresto per Cardiology for heart failure management,strict I's and O's and daily weights -Echo showed grade 1 diastolic dysfunction with an EF of 25-30% as well as moderate aortic valve regurgitation -Lasix held yesterday due to prerenal azotemia -appreciate cardiology recommendations (2) Respiratory failure: Code(s): J96.90 - Respiratory failure, unspecified, unspecified whether with hypoxia or hypercapnia Status: Acute Assessment and Plan: -Improved with diuresis -weaned to room air this morning, will monitor overnight, hopeful discharge tomorrow if cleared by cardiology (3) Peripheral artery disease: Code(s): I73.9 - Peripheral vascular disease, unspecified Status: Acute Assessment and Plan: -Severe vascular disease, would consider vascular surgery consultation on outpatient basis, however, patient will be a poor surgical candidate and should probably consider change in code status as opposed to aggressive revascularization, currently asymptomatic (4) Anxiety: Code(s): F41.9 - Anxiety disorder, unspecified Status: Acute Assessment and Plan: -Ativan and hydroxyzine as needed Subjective Date/time seen: 09/25/21 15:57 Interval history: 68-year-old female with past medical history significant for COPD, cardiomyopathy with valvular heart disease including aortic regurgitation admitted for CHF exacerbation. She is feeling better today. SOB has significantly improved. Denies cp/LE edema. Review of Systems Review of Systems: All systems reviewed & are unremarkable except as noted in HPI and below Exam Narrative: General: Patient resting comfortably in bed, no acute distress HEENT: Atraumatic, normocephalic, mucous membranes moist CV: Regular rate and rhythm, S1, S2, no murmurs rubs or gallops noted Lungs: Clear to auscultation bilaterally, no rales or crackles noted, no wheezes, good air entry Abdomen: Soft, nontender, nondistended Extremities: Normal to inspection, no edema noted Skin: No rashes noted, no lesions or wounds seen Psych: Euthymic, normal affect Neuro: Cranial nerves 2-12 grossly intact, strength 5/5 upper and lower extremities noted Objective Data Vital Signs Vital Signs: Vital Signs - 24 hr 09/24/21 16:11 09/24/21 16:00 09/24/21 18:00 Temperature 97.6 F Pulse Rate 93 101 H 90 Respiratory Rate 16 Blood Pressure 123/60 Pulse Oximetry 98 Oxygen Delivery Oxygen Flow Rate 09/24/21 20:00 09/24/21 20:35 09/24/21 19:59 Temperature 98.0 F Pulse Rate 113 H 90 100 Respiratory Rate 18 18 Blood Pressure 121/47 L Pulse Oximetry 99 99 Oxygen Delivery Nasal Cannula Oxygen Flow Rate 2 09/24/21 19:59 09/24/21 20:15 09/24/21 20:00 Temperature Pulse Rate 100 100 86 Respiratory Rate 18 18 Blood Pressure Pulse Oximetry Oxygen Delivery Oxygen Flow Rate 09/24/21 20:00 09/24/21 23:22 09/24/21 22:00 Temperature Pulse Rate 84 81 Respiratory Rate Blood Pressure Pulse Oximetry 99 97 Oxygen Delivery Nasal Cannula Oxygen Flow Rate 2 09/25/21 00:00 09/25/21 02:30 09/25/21 02:38 Temperature Pulse Rate 77 91 94 Respiratory Rate 18 16 Blood Pressure Pulse Oximetry Oxygen Delivery Oxygen Flow Rate 09/25/21 04:00 09/25/21 04:00 09/25/21 08:07 Temperature 96.9 F L Pulse Rate 81 70 105 H Respiratory Rate 18 Blood Pressure 104/64 Pulse Oximetry 98 Oxygen Delivery Oxygen Flow Rate 09/25/21 08:28 09/25/21 08:29 09/25/21 08:37 Temperature Pulse Rate 56 L 62 Respiratory Rate 18 18 Blood Pressure Pulse Oximetry 90 Oxygen Deliver
[2021-09-26] VITALS (15 sets, daily range): BP systolic 106–113; BP diastolic 47–64; PULSE 52–99; RESP 18; TEMP 36–36.5; O2SAT 88–100; BMI 15.2
[2021-09-26] MEDS: IPRATROPIUM BR 0.02% INH SOLN 0.5 MG/2.5 ML VIAL INHALATION ×2 (02:18→08:31)
[2021-09-26] MEDS: ALBUTEROL SULFATE NEB 2.5 MG/3 ML INH 5 MG INHALATION ×2 (02:19→08:31)
[2021-09-26] MEDS: NITROGLYCERIN OINTMENT 1 INCH DOSE TRANSDERM (05:51)
[2021-09-26 06:38] LABS: Basophils Percent Auto 0.4 % (0.2-1.2); Eosinophils Percent Auto 0.3 % (0-4.4); Hematocrit 44.1 % (37.0-47.0); Hemoglobin 14.7 g/dL (12.0-15.0); Immature Granulocyte Absolute 0.03 K/mm3 (0.00-0.031); Immature Granulocyte Percent A 0.4 % (0-0.5); Lymphocytes Percent Auto 23.7 % (18.3-44.2); Mean Corpuscular HGB Conc 33.3 g/dl (32-36); Mean Corpuscular Hemoglobin 30.9 pg (26-34); Mean Corpuscular Volume 92.6 fl (80-100); Mean Platelet Volume 9.7 fl (7.4-10.4); Monocytes Absolute Auto 0.6 K/mm3 (0.1-0.6); Monocytes Percent Auto 8.8 % (2.6-8.5); Neutrophils Absolute Auto 4.8 K/mm3 (1.3-6.7); Neutrophils Percent Auto 66.4 % (45.5-73.1); Platelet Count Result 156 k/mm3 (150-375); Red Blood Count 4.76 M/mm3 (4.2-5.4); Red Cell Distribution Width 12.7 % (11.5-14.5); White Blood Count 7.2 K/mm3 (4.5-10.0)
[2021-09-26 06:46] LABS: Alanine Aminotransferase 21 U/L (6-35); Albumin Level 3.6 g/dL (3.5-5.1); Alkaline Phosphatase 60 U/L (38-126); Anion Gap 3 mmol/L (8-16); Aspartate Amino Transferase 33 U/L (14-36); Bilirubin,Total 2.5 mg/dL (0.2-1.3); Blood Urea Nitrogen 26 mg/dL (7-17); Calcium 8.7 mg/dL (8.4-10.2); Carbon Dioxide 31 mmol/L (22-30); Chloride 102 mmol/L (98-107); Estimated CRCL calculation 34 ml/min; Estimated Glomerular Filt Rate > 60; Glucose 91 mg/dL (65-110); Potassium 3.5 mmol/L (3.4-5.0); Sodium 136 mmol/L (137-145)
[2021-09-26] MEDS: carvediloL 6.25 MG TABLET PO (08:33)
--- NOTE | 2021-09-26 09:52 | PM.PNCARD ---
Progress Note: A&P Assessment and Plan (1) Chronic combined systolic and diastolic heart failure: Code(s): I50.42 - Chronic combined systolic (congestive) and diastolic (congestive) heart failure Status: Acute Assessment and Plan: Improved with diuresis. VANNA has been on old since admission, started Entresto 12-13 this morning. Continue current medical regimen with coreg, spironolactone. BMP in 2 weeks to monitor renal function and electrolytes. OK for discharge home from a cardiac standpoint. (2) Irregular heart rhythm: Code(s): I49.9 - Cardiac arrhythmia, unspecified Status: Acute Assessment and Plan: Sinus rhythm with very frequent ventricular and some atrial ectopy. Also some bursts of atrial tachycardia. Continue coreg dose to 6.25mg b.i.d. (3) Respiratory failure: Code(s): J96.90 - Respiratory failure, unspecified, unspecified whether with hypoxia or hypercapnia Status: Acute Assessment and Plan: Secondary to volume overload/CHF. Improved. (4) Aortic stenosis: Code(s): I35.0 - Nonrheumatic aortic (valve) stenosis Status: Acute Assessment and Plan: Moderate. Being treated medically. Subjective Date/time seen: 09/26/21 09:52 Cardiology follow up for CHF Feeling good today. No shortness of breath, CP. Does feel occasional palpitations. Has lots of questions regarding her medications. Review of Systems Constitutional: Constitutional: Reports fatigue Eyes: Eyes: Reports no additional eye complaints ENT: Reports system reviewed and no additional complaints, except as documented Cardiovascular: Cardiovascular: Reports as per HPI and Reports dyspnea Respiratory: Respiratory: Reports dyspnea Gastrointestinal: Gastrointestinal: Reports no additional gastrointestinal complaints Musculoskeletal: Musculoskeletal: Reports arthralgias Integumentary/Breasts: Skin/Breast: Reports system reviewed and no additional complaints, except as docu Neurologic: Reports system reviewed and no additional complaints, except as documented Endocrine: Endocrine: Reports no additional endocrine complaints and Reports fatigue Hematologic/Lymphatic: Hematologic/Lymphatic: Reports no additional hematologic/lymphatic complaints Allergic/Immunologic: Allergic/Immunologic: Reports no additional allergic/immunologic complaints Exam Const: General: no acute distress Other: Thin, frail elderly lady lying comfortably in bed. Daughters at the bedside. HENMT: Mouth: Yes moist mucous membranes Eyes: Sclera: sclerae normal Neck: Neck: supple Thyroid: thyroid normal Carotids: normal carotid upstroke and no bruits Other: Normal upstrokes no carotid bruits Resp: Auscultation: clear to auscultation bilaterally and diminished lung sounds Cardio: Rate: regular rate Rhythm: regular rhythm Heart sounds: S1 normal heart sound present, S2 normal heart sound present and Murmur heart sound present GI: Auscultation: normal bowel sounds Skin: General skin exam: normal color Neuro: General: gait normal Other: Normal cognition Extrem: Other: No peripheral edema. Extremities are warm, pedal pulses are not palpable. Objective Data Vital Signs Vital Signs: Vital Signs - 24 hr 09/25/21 10:00 09/25/21 12:00 09/25/21 13:34 Temperature 36.8 C 36.3 C L Pulse Rate 80 80 64 Respiratory Rate 16 18 Blood Pressure 100/47 L 114/50 L Pulse Oximetry 97 94 Oxygen Delivery Oxygen Flow Rate Fraction of Inspired Oxygen 09/25/21 14:16 09/25/21 14:24 09/25/21 16:20 Temperature 36.6 C Pulse Rate 80 68 60 Respiratory Rate 18 18 16 Blood Pressure 126/70 Pulse Oximetry 93 Oxygen Delivery Oxygen Flow Rate Fraction of Inspired Oxygen 09/25/21 16:00 09/25/21 20:10 09/25/21 20:45 Temperature Pulse Rate 89 66 70 Respiratory Rate 18 Blood Pressure Pulse Oximetry Oxygen Delivery Oxygen Flow Rate
[2021-09-26] MEDS: SACUBITRIL/VALSARTAN 12-13 MG TABLET 1 TAB PO (10:52)
--- NOTE | 2021-09-26 11:14 | PM.DS ---
DS: Admitting Diagnosis Discharge Date 09/26/21 Admitting Diagnosis chf DS: Discharge Diagnosis Discharge Diagnosis (1) Acute exacerbation of CHF (congestive heart failure): Code(s): I50.9 - Heart failure, unspecified Status: Acute Assessment and Plan: -IV Lasix with improvement -Started Entresto per Cardiology for heart failure management -monitored strict I's and O's and daily weights -Echo showed grade 1 diastolic dysfunction with an EF of 25-30% as well as moderate aortic valve regurgitation -Lasix held due to prerenal azotemia -appreciate cardiology recommendations regarding discharge medications (2) Respiratory failure: Code(s): J96.90 - Respiratory failure, unspecified, unspecified whether with hypoxia or hypercapnia Status: Acute Assessment and Plan: -Resolved with diuresis -weaned to room air yesterday morning -home oxygen eval showed no need for home O2 (3) Peripheral artery disease: Code(s): I73.9 - Peripheral vascular disease, unspecified Status: Acute Assessment and Plan: -Severe vascular disease, would consider vascular surgery consultation on outpatient basis, however, patient will be a poor surgical candidate and should probably consider change in code status as opposed to aggressive revascularization, currently asymptomatic (4) Anxiety: Code(s): F41.9 - Anxiety disorder, unspecified Status: Acute Assessment and Plan: -Ativan and hydroxyzine as needed DS: Summary Hospital Course Reason for hospitalization: 68-year-old female with past medical history significant for COPD, cardiomyopathy with valvular heart disease including aortic regurgitation admitted for CHF exacerbation. Please see HPI for further details. Hospital Course: Please see above for details of hospital course. Status at Discharge Cognitive/behavioral status at discharge: stable Functional status at discharge: independent ambulation Time Spent with Patient Time attestation: Total time spent providing and/or coordinating discharge services: 35 Time spent: Greater than 30 minutes Exam Narrative: General: Patient resting comfortably in bed, no acute distress HEENT: Atraumatic, normocephalic, mucous membranes moist CV: Regular rate and rhythm, S1, S2, no murmurs rubs or gallops noted Lungs: Clear to auscultation bilaterally, no rales or crackles noted, no wheezes, good air entry Abdomen: Soft, nontender, nondistended Extremities: Normal to inspection, no edema noted Skin: No rashes noted, no lesions or wounds seen Psych: Euthymic, normal affect Neuro: Cranial nerves 2-12 grossly intact, strength 5/5 upper and lower extremities noted DS: Data Data Completed and Pending Labs on day of discharge: Labs from last 24 hours 09/26/21 09/26/21 05:43 05:43 WBC 7.2 RBC 4.76 Hgb 14.7 Hct 44.1 MCV 92.6 MCH 30.9 MCHC 33.3 RDW 12.7 Plt Count 156 MPV 9.7 Immature Gran % (Auto) 0.4 Neut % (Auto) 66.4 Lymph % (Auto) 23.7 Trinity % (Auto) 8.8 H Eos % (Auto) 0.3 Baso % (Auto) 0.4 Lymph # (Auto) 1.70 Trinity # (Auto) 0.6 Eos # (Auto) 0.0 Baso # (Auto) 0.0 Abs Immat Gran (auto) 0.03 Absolute Neuts (auto) 4.8 Absolute Nucleated RBC 0.0 Nucleated RBC % 0.0 Sodium 136 L Potassium 3.5 Chloride 102 Carbon Dioxide 31 H Anion Gap 3 L BUN 26 H Creatinine 0.80 Estim Creat Clear Calc 34 Estimated GFR > 60 Glucose 91 Calcium 8.7 Total Bilirubin 2.5 H AST 33 ALT 21 Alkaline Phosphatase 60 Total Protein 6.0 L Albumin 3.6 Preliminary micro results at discharge 09/23/21 05:27 Blood Culture - Preliminary Blood 09/23/21 05:27 Blood Culture - Preliminary Blood Discharge Plan Discharge Attending physician on discharge: Joe Salgado Consulting providers: Ivon Hill Discharging Clinician: Georgiana Roy
--- NOTE | 2021-09-26 13:26 | PCRCNOTE ---
Home O2 eval complete. No home O2 needed. RN notified
--- NOTE | 2021-09-26 13:28 | PCNSR ---
On 09/26/21, the student, Zuleika Miller, provided care and completed [facility] documentation on this patient. I have reviewed the student's documentation and agree with the findings.
== END 2021-09-26 14:45 | disposition home or self-care (01) | DRG 291 ==
LOC: ANHED 03:52 → ANHIMU 03:57 → ANH2MED 09-25 00:57
PROVIDERS: Nurse Practitioner; Student in an Organized Health Care Education/Training Program; Admitting Provider Internal Medicine; Emergency Provider Emergency Medicine; PCP Internal Medicine; Visit Provider Internal Medicine
DX: I50.43 Acute on chronic combined systolic (congestive) and diastolic (congestive) heart failure (principal); J96.90 Respiratory failure, unspecified, unspecified whether with hypoxia or hypercapnia; I42.0 Dilated cardiomyopathy; I08.0 Rheumatic disorders of both mitral and aortic valves; I73.9 Peripheral vascular disease, unspecified; J43.9 Emphysema, unspecified; F41.9 Anxiety disorder, unspecified; R77.8 Other specified abnormalities of plasma proteins; Z87.891 Personal history of nicotine dependence; Z20.822 Contact with and (suspected) exposure to COVID-19; I49.9 Cardiac arrhythmia, unspecified
CPT/HCPCS: 36415; 36600; 71045; 80053; 81001; 82805; 83605; 83735; 83880; 84443; 84484; 85025; 85610; 85730; 87040; 93005; 93306; 93922; 93970; 94002; 94003; 94618; 94640; 96374; 99291; A9270; C9803; J0456; J0696; J1940; U0003; U0005

== ENCOUNTER 2021-11-19 04:09 | Inpatient (IN) | payer MEDICARE, SELFPAY ==
[2021-11-19] VITALS (39 sets, daily range): BP systolic 99–144; BP diastolic 33–77; PULSE 68–123; RESP 16–38; TEMP 35.4–37.7; O2SAT 95–100; BMI 16.9
--- NOTE | 2021-11-19 | ECHO_ITS ---
Patient Info Name: Roxy Garner Age: 76 years : 1945 Gender: Female Ht: 61 in Wt: 83 lbs BSA: 1.26 m2 HR: 77 bpm BP: 115 / 43 mmHg Heart Rhythm: Sinus Rhythm Exam Date: 11/19/2021 9:13 AM Exam Location: [facility] Patient Status: Inpatient Admit Date: 11/19/2021 Staff Ordering Physician: Radha Tripathi DO Assistant Kitchen Manager: Patrice Noble RDCS, RT Attending Provider: Radha Tripathi DO Referring Physician: Bhumi VICENTE; Exam Type: CA echo limited w contrast Study Info Indications I50.23 - Acute on chronic systolic (congestive) heart failure Limited two-dimensional transthoracic echocardiogram is performed with contrast. Summary 1. Left ventricular chamber dimension is severely enlarged. 2. Left ventricular systolic function is severely reduced, estimated at 20-25%. 3. Left ventricular septal wall motion is abnormal with septal motion related to bundle branch block. 4. There is no thrombus visualized in the left ventricle. Left Ventricle Left ventricular chamber dimension is severely enlarged. Left ventricular systolic function is severely reduced, estimated at 20-25%. Left ventricular septal wall motion is abnormal with septal motion related to bundle branch block. There is no thrombus visualized in the left ventricle. Technically difficult study with limited views. Definity contrast administered. Right Ventricle Right ventricular chamber dimension is not well visualized. Left Atria Left atrial chamber dimension is not well visualized. Right Atria Right atrial chamber dimension is not well visualized. Aortic Valve The aortic valve is not well visualized. There is moderate aortic valve regurgitation. Pulmonic Valve The pulmonic valve is not well visualized. Mitral Valve The mitral valve has not well visualized. Tricuspid Valve The tricuspid valve leaflets are not well visualized. Pericardium/Pleural The pericardium appears not well visualized. Aorta The aortic root size at the sinus of Valsalva is not well visualized. Ventricles Name Value Normal LV Fractional Shortening/Ejection Fraction 2D/MM LV Diastolic Volume (4C MOD) 102 ml LV EF (4C MOD) 24 % LV Diastolic Volume (2C MOD) 150 ml LV EF (2C MOD) 30 % LV Diastolic Volume (BP MOD) 128 ml 46-106 LV Diastolic Volume Index (BP MOD) 102 ml/m2 29-61 LV Systolic Volume (BP MOD) 94 ml 14-42 LV Systolic Volume Index (BP MOD) 74 ml/m2 8-24 LV EF (BP MOD) 27 % 54-74 LV Diastolic Length (4C) 7.3 cm LV Systolic Length (4C) 6.6 cm LV Stroke Volume (4C MOD) 24 ml Report Signatures
--- NOTE | ~2021-11-19 | XR_ITS ---
EXAMINATION: XR abdomen NG/feed tube insert DATE: 11/19/2021 04:58 INDICATION: Nasogastric tube placement. TECHNIQUE: A supine view of the abdomen was obtained. COMPARISON: CT abdomen and pelvis 07/01/2016 FINDINGS: The lower abdomen is excluded. The nasogastric tube tip is in the stomach. IMPRESSION: 1. Nasogastric tube tip in the stomach. Reviewed, dictated and finalized at location A.
--- NOTE | ~2021-11-19 | XR_ITS ---
EXAMINATION: XR chest port-a-cath/central INDICATION: Central line insertion TECHNIQUE: Portable AP chest at 0809 hours COMPARISON: 11/19/2021 FINDINGS: A right internal jugular central venous catheter is been inserted which ends with its tip i n the midsuperior vena cava. The endotracheal tube ends approximately 2.0 cm above the maria de jesus. The na sogastric tube is followed as far as the stomach. Its tip is beyond the inferior margin of the radiog raph. The lungs are hyperinflated. No pleural effusion or pneumothorax. Chronic airspace opacities ar e again noted in the right mid and upper lung zones. There are persistent but improving airspace opac ities of the left mid and lower lung zones. Cardiomegaly is noted. There is developing atelectasis of the right upper lobe. IMPRESSION: 1. Right internal jugular central venous catheter insertion ending in the midsuperior vena cava. 2. Developing atelectasis of the right upper lobe. 3. Persistent but improved airspace opacities of the left mid and lower lung zones, consistent with a telectasis versus pneumonia. 4. Severe emphysema. 5. Cardiomegaly. Reviewed, dictated and finalized at location D. IMPRESSION: 1. Right internal jugular central venous catheter insertion ending in the midsu perior vena cava. 2. Developing atelectasis of the right upper lobe. 3. Persistent but improved airspace opacities of the left mid and lower lung zo nickolas, consistent with atelectasis versus pneumonia. 4. Severe emphysema. 5. Cardiomegaly.
--- NOTE | ~2021-11-19 | CT_ITS ---
EXAMINATION: CT brain wo con DATE: 11/19/2021 22:02 INDICATION: unequal pupils . TECHNIQUE: Computed tomography (CT) of the head was performed without intravenous contrast. The mA wa s adjusted according to patient size. Iterative reconstruction technique was employed. The dose-lengt h product was 605.33 mGy-cm. COMPARISON: None FINDINGS: No acute intracranial hemorrhage or extra-axial fluid collection. No hydrocephalus, mass, or herniation. Asymmetric hypodensity in the right medial and inferior cerebellar hemisphere. Unremarkable dural venous sinus attenuation. No acute osseous abnormality. 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 Left mastoid effusion. Mucosal thickening and an air-fluid level in the left maxillary sinus. Remaini ng aerated spaces are clear. IMPRESSION: Acute/subacute right cerebellar infarcts. Results reported telephonically to Jazmin Munroe RN by Dr. Lcakey at 10:11 PM on 09/19/2021. Reviewed, dictated and finalized at location K. IMPRESSION: Acute/subacute right cerebellar infarcts. Results reported telephonically to Jazmin Munroe RN by Dr. Lackey at 10:11 PM on 09/19/2021.
--- NOTE | ~2021-11-19 | XR_ITS ---
EXAMINATION: XR chest ET placement DATE: 11/19/2021 04:53 INDICATION: Intubation. TECHNIQUE: A single frontal view of the chest was obtained. COMPARISON: chest single view 09/26/2021, CT abdomen and pelvis 07/01/2016, chest CT 05/21/2010 FINDINGS: The patient is rotated to her left. The lungs are hyperexpanded with lucencies and chronic reticular opacities, consistent with emphysema. There are chronic airspace opacities in right mid and upper lung zones, likely scarring. There are airspace opacities in left mid and lower lung zones wit h a basilar predominance. A calcified right lung nodule is consistent with old granulomatous disease. There is a small left pleural effusion. No pneumothorax. Cardiomegaly is noted. Endotracheal tube ti p is 2.7 cm above the maria de jesus. The nasogastric tube tip is beyond the inferior margin of the radiograp h, but at least to the stomach. IMPRESSION: 1. Airspace opacities in left mid and lower lung zones with a basilar predominance, consistent with a telectasis versus pneumonia. 2. Small left pleural effusion. 3. Severe emphysema. 4. Cardiomegaly. Reviewed, dictated and finalized at location A. IMPRESSION: 1. Airspace opacities in left mid and lower lung zones with a basilar predomina nce, consistent with atelectasis versus pneumonia. 2. Small left pleural effusion. 3. Severe emphysema. 4. Cardiomegaly.
--- NOTE | 2021-11-19 04:13 | ECG_ITS ---
Measurements Intervals [place] Rate: 89 P: 76 TN: 128 QRS: 108 QRSD: 118 T: 0 QT: 353 QTc: 429 Interpretive Statements SINUS RHYTHM WITH FREQUENT VENTRICULAR PREMATURE COMPLEXES LEFT ATRIAL ENLARGEMENT INCOMPLETE RIGHT BUNDLE BRANCH BLOCK POSSIBLE ANTERIOR MYOCARDIAL INFARCTION , OF INDETERMINATE AGE Electronically Signed On 11-19-2021 8:27:23 CDT by Luis Antonio Cazares M.D.
[2021-11-19 04:35] LABS: Hematocrit 53.9 % (37.0-47.0); Hemoglobin 16.6 g/dL (12.0-15.0); Mean Corpuscular HGB Conc 30.8 g/dl (32-36); Mean Corpuscular Hemoglobin 30.9 pg (26-34); Mean Corpuscular Volume 100.4 fl (80-100); Mean Platelet Volume 9.9 fl (7.4-10.4); Platelet Count Result 170 k/mm3 (150-375); Red Blood Count 5.37 M/mm3 (4.2-5.4); Red Cell Distribution Width 14.1 % (11.5-14.5); White Blood Count 10.7 K/mm3 (4.5-10.0)
[2021-11-19] MEDS: ONDANSETRON INJ 4 MG/2 ML VIAL (04:35)
[2021-11-19 04:46] LABS: Alanine Aminotransferase 12 U/L (6-35); Albumin Level 4.1 g/dL (3.5-5.1); Alkaline Phosphatase 59 U/L (38-126); Anion Gap 16 mmol/L (8-16); Aspartate Amino Transferase 27 U/L (14-36); Bilirubin,Total 1.2 mg/dL (0.2-1.3); Blood Urea Nitrogen 13 mg/dL (7-17); Calcium 9.9 mg/dL (8.4-10.2); Carbon Dioxide 21 mmol/L (22-30); Chloride 101 mmol/L (98-107); Estimated CRCL calculation 21 ml/min; Estimated Glomerular Filt Rate 43; Glucose 211 mg/dL (65-110); INR 1.2; Potassium 4.1 mmol/L (3.4-5.0); Prothrombin Time 14.3 Seconds (11.1-14.7); Sodium 138 mmol/L (137-145)
[2021-11-19 04:58] LABS: Band Neutrophils Percent 1 % (0-6); Eosinophils Percent Manual 1 % (0-4); Lymphocytes Absolute Manual 6.95 K/mm3 (1.1-4.5); Monocytes Absolute Manual 0.42 K/mm3 (0.1-0.90); Monocytes Percent Manual 4 % (3-9); Neutrophils Absolute Manual 3.21 K/mm3 (1.7-7.2); Neutrophils Percent Manual 29 % (46-73); Platelet Estimate Adequate (Adequate); Total Cells Counted 100
[2021-11-19] MEDS: FUROSEMIDE INJ 40 MG/4 ML VIAL 20 MG IV PUSH (04:59)
[2021-11-19 05:00] LABS: PCO2 ABG 47.1 mmHg (35.0-45.0); pH ABG 7.113 (7.350-7.450)
[2021-11-19 05:01] LABS: Alveolar/Arterial O2 Gradient 509.5 mmHg; Base Excess ABG -14.7 mEq/l (+/-2.0); Fractional Inspired Oxygen 100 %; HCO3 ABG 14.7 mEq/l (22.0-26.0); Oxygen Content ABG 23.3 %vol (16.0-22.0); Oxygen Saturation ABG 98.3 % (95.0-100.0); Oxyhemoglobin 97.7 % THb (90.0-100.0); PO2 ABG 156.4 mmHg (80.0-100.0); PO2 FiO2 Ratio Arterial Blood 1.56 %; Total Hemoglobin 16.8 g/dL (12.0-18.0)
[2021-11-19 05:02] LABS: Magnesium 2.4 mg/dL (1.6-2.3); NT Pro B Type Natriuretic Pept 11000 pg/mL (5-100); Troponin I 0.042 ng/mL (0.000-0.034)
[2021-11-19 05:02] LABS: Device NON-REBREATHER MASK; Modified Allen's Test Pass; Site Drawn LEFT RADIAL
[2021-11-19] MEDS: MIDAZOLAM HCL (*CRX) 2 MG/2 ML VIAL IV PUSH ×3 (05:10→08:37)
--- NOTE | 2021-11-19 05:31 | PM.IMHP ---
H&P: HPI History of Present Illness Date/Time: 11/19/21 05:31 Chief Complaint: Respiratory distress Narrative: 76-year-old female with a past medical history of emphysema, moderate aortic valve regurgitation and severe systolic and diastolic heart failure who presented to the ER via EMS with respiratory distress. When the patient arrived to the ER she was satting 86% on 15 L non-rebreather with respiratory rate in the 50s to 60s. Patient's EKG was demonstrating significant ectopy and rhythm changes including multiple runs of V-tach. I think the patient's underlying rhythm may have been AFib with frequent PVCs. Family reports the patient developed rapid onset of dyspnea and was speaking in 1-2 of were since is when she arrived to the ER. She had not reported any chest pain to the family. Patient has no lower extremity swelling. Her temperature was normal on arrival. At the time my evaluation the patient was intubated and sedated in the ER. Family members report the patient is not a candidate for valve repair. They know that the patient would not want to be on a ventilator long-term. I had a discussion with family regarding long-term prognosis and at this time they do not want the patient to have CPR if she were to have cardiac arrest. They would like to leave her on the ventilator and see if she could be weaned from the ventilator in the near future. Entirety of HPI obtained from ER records, past medical records and family report. Review of Systems Review of Systems: ROS unobtainable: Yes unobtainable due to endotracheal tube PMFSH Past Medical History Medical History (Updated 11/19/21 @ 06:57 by Radha Tripathi DO) Combined systolic and diastolic congestive heart failure Echocardiogram August 2021: Moderate left ventricular enlargement, left ventricular systolic function severely reduced with EF of 25-30 mild left atrial enlargement, moderate aortic valve regurgitation, mild mitral valve regurgitation Emphysema lung Hyperlipidemia Moderate aortic valve regurgitation Nicotine abuse Orthostatic hypotension Peripheral artery disease Postmenopausal Vitamin D deficiency Surgical History Surgical History H/O dilation and curettage History of colonoscopy with polypectomy Family History Family History Sibling Family history of elevated blood lipids Acute myocardial infarction Mother Family history of diabetes mellitus in first degree relative Diabetes mellitus Social History Social History (Updated 11/19/21 @ 06:48 by Radha Tripathi DO) Social History: Code status: No CPR Healthcare power of county attorney: Lorena Reece (daughter) Smoking packs per day: 0.5 Smoking cigarettes per day: 10.0 Years smoked: 30 Smoking pack-years: 15.00 Smoking status: Former smoker Tobacco type: cigarettes Second hand tobacco smoke exposure: Yes Smoking end date: 03/30/21 Alcohol intake: never Substance use: never Substance use type: does not use Spiritual care concerns: No Meds Home Medications and Allergies Home Medications Medication Instructions Recorded Confirmed Type spironolactone 25 mg tablet See Rx Instructions .Route 07/19/21 10/02/21 Rx .COMPLEX #45 tabs sacubitril 24 mg-valsartan 26 mg 0.5 tablet PO BID #15 tabs 09/26/21 10/02/21 Rx tablet (Entresto) carvedilol 3.125 mg tablet 3.125 mg PO Q12H #180 tabs 10/02/21 10/02/21 Rx Allergies Allergy/AdvReac Type Severity Reaction Status Date / Time ciprofloxacin Allergy Mild Nausea and Verified 10/02/21 17:44 Vomiting codeine Allergy Unknown Congested Verified 10/02/21 17:44 Sulfa (Sulfonamide Allergy Unknown Photosensit Verified 10/02/21 17:44 Antibiotics) ivity Vital Signs Vital Signs - 24 hr 11/19/21 04:21 11/19/21 04:52 11/19/21 04:35 Temperature Pulse Rate 110 H 91 91 Respirato
--- NOTE | 2021-11-19 05:32 | PC.NURSE ---
0430- Staff unable to get Temp at this time, peripherals are very cold to touch. 128/77, RR 27 on NRB 15L. 0435- Zofran 4mg IVP given for c/o nausea. 0438- Provider, Dr. Rosa, RT and RNs at bedside and prepared for intubation. Etomidate 15mg IVP and Rocuronium 50mg IVP given for intubation medications. 0440- 7.5 ET tube 21@ the lip. 18fr OG placed by Dr. Rosa that is 60@ the lip. 0451- Vent settings 350ml tidal volume, 16 RR, PEEP 5 and FiO2@ 100% 0453- 16Fr Temp Lynn placed with <100ml out. 0605- Dr. Rosa and Dr. Tripathi at bedside, attempting to place Arterial line at this time. Family at bedside speaking with providers.
[2021-11-19 05:40] LABS: SARS-CoV-2 RNA PCR Negative
[2021-11-19] MEDS: FENTANYL 2,500MCG/NS250ML(*CRX 2,500 MCG/250 ML BAG IV CONT (05:50)
[2021-11-19 06:05] LABS: Appearance Urine Clear (Clear); Bilirubin Urine Negative (Negative); Color Urine Yellow (Yellow); Glucose Urine UA Negative (Negative); Ketones Urine Negative (Negative); Leukocyte Esterase Ur Negative LEU/UL (Negative); Nitrate Urine Negative (Negative); Protein Urine Negative (Negative); Specific Grav Ur 1.015 (1.001-1.035); Urobilinogen Urine 0.2 mg/dL (<2.0); pH Urine 5.5 (5.0-9.0)
[2021-11-19 06:09] LABS: Add Urine Microscopic? YES; Blood Urine Trace-Intact (Negative)
[2021-11-19 06:17] LABS: Bacteria Urine Trace /hpf; Mucus Urine Rare /lpf; RBC Urine 0-2 /hpf (0-2)
--- NOTE | 2021-11-19 06:20 | ED.GENADULT ---
HPI - General Adult General Chief complaint: Shortness of Breath/Dyspnea Stated complaint: SOB, DIFFICULTY BREATHING Time Seen by Provider: 11/19/21 04:50 History of Present Illness HPI narrative: This is a 76-year-old female with a history of congestive heart failure and aortic regurg then the ED with shortness of breath. Patient has 1-2 word dyspnea. She is unable to provide any history. She is in respiratory extremis. Related Data Allergies Allergy/AdvReac Type Severity Reaction Status Date / Time ciprofloxacin Allergy Mild Nausea and Verified 10/02/21 17:44 Vomiting codeine Allergy Unknown Congested Verified 10/02/21 17:44 Sulfa (Sulfonamide Allergy Unknown Photosensit Verified 10/02/21 17:44 Antibiotics) ivity Review of Systems Review of Systems: ROS unobtainable: Yes unobtainable due to medical condition PMFSH Past Medical History Medical History Combined systolic and diastolic congestive heart failure Echocardiogram August 2021: Moderate left ventricular enlargement, left ventricular systolic function severely reduced with EF of 25-30 mild left atrial enlargement, moderate aortic valve regurgitation, mild mitral valve regurgitation Hyperlipidemia Moderate aortic valve regurgitation Nicotine abuse Orthostatic hypotension Peripheral artery disease Postmenopausal Vitamin D deficiency Surgical History Surgical History H/O dilation and curettage History of colonoscopy with polypectomy Family History Family History Sibling Family history of elevated blood lipids Acute myocardial infarction Mother Family history of diabetes mellitus in first degree relative Diabetes mellitus Social History Social History Smoking packs per day: 0.5 Smoking cigarettes per day: 10.0 Years smoked: 30 Smoking pack-years: 15.00 Smoking status: Former smoker Tobacco type: cigarettes Second hand tobacco smoke exposure: Yes Smoking end date: 03/30/21 Alcohol intake: never Substance use: never Substance use type: does not use Spiritual care concerns: No Exam Narrative: APPEARANCE: patient is pale and cachectic. She is laying flaccid on the bed. She is able to answer questions repeatedly. Head atraumatic. EYES: PERRLA/EOMI, NOSE: Normal no drainage NECK: Supple, Trachea midline RESPIRATORY: Diffuse crackles, tachypneic, Using accessory muscles to breathe. CARDIOVASCULAR: irregular heart rate peripheral edema ABDOMINAL: Soft, nontender, nondistended, MUSCULOSKELETAl: No obvious deformities NEURO: Alert. Moving 4/4 extremities SKIN:: pale, cool, clammy PSYCHIATRIC: flat affect Course Vital Signs Vital signs: Vital Signs Pulse Rate 110 H 11/19/21 04:21 Respiratory Rate 38 H 11/19/21 04:21 Blood Pressure 128/77 11/19/21 04:21 Temperature 97.1 F L 11/19/21 05:19 Pulse Rate 94 11/19/21 05:50 Respiratory Rate 16 11/19/21 05:50 Blood Pressure 115/51 L 11/19/21 04:52 Pulse Oximetry 100 11/19/21 04:35 Oxygen Delivery Mechanical Ventilation 11/19/21 04:35 Fraction of Inspired Oxygen 100 11/19/21 04:35 Medical Decision Making MDM Narrative Medical decision making narrative: 76-year-old female with heart failure and aortic regurg presenting ED in respiratory extremis. Arrival the patient was cool and clammy. Breathing 30-40 times per minute. We were unable to obtain a pulse ox as the patient's limbs were cold. decision was made to intubate due to impending respiratory collapse. Procedure Note: Intubation Consent: Implied emergent Indication: Hypoxic Respiratory Failure Induction: Etomidate/Rocuronium [7.5] ET tube passed on 1st attempt w/ Mac 3 Blade Secured @ [2] cm at the lip. OG tube placed. Placement confirmed w/ XR, b
[2021-11-19] MEDS: SODIUM BICARBONATE 8.4% 50 MEQ/50 ML SYRINGE IV PUSH (06:44)
--- NOTE | 2021-11-19 07:13 | ADMGEN ---
This patient, Roxy Garner, was admitted to Intensive Care Unit-9. Patient/family oriented to hospital policies and general routines including ID bracelet, bed and alarms, visiting hours, pain management, procedures, bathroom and other care routines, personal items, smoking policy, room service/diet, and visiting hours. Information on how to activate the Rapid Response Team has been discussed. Patient/Family are encouraged to report perceived risks to care and to ask questions if they do not understand what they are told or what they should do.
[2021-11-19 07:39] LABS: Base Excess ABG -2.1 mEq/l (+/-2.0); Fractional Inspired Oxygen 70 %; Oxygen Saturation ABG 96.1 % (95.0-100.0); Oxyhemoglobin 95.3 % THb (90.0-100.0); PCO2 ABG 51.1 mmHg (35.0-45.0); PO2 ABG 90.2 mmHg (80.0-100.0); PO2 FiO2 Ratio Arterial Blood 1.29 %; Total Hemoglobin 16.4 g/dL (12.0-18.0); pH ABG 7.307 (7.350-7.450)
[2021-11-19 07:42] LABS: Arterial Blood Gas PEEP 5 cmH2O; Arterial Blood Gas Tidal Volume 350 ml; Arterial Blood Gas Vent Mode CMV; Arterial Blood Gas Ventilator rate 16 /MIN; Device VENTILATOR; Site Drawn ARTLINE
[2021-11-19] MEDS: MIDAZOLAM 100MG/NS 100ML(*CRX) 100 MG/100 ML BAG IV CONT (08:09)
[2021-11-19] MEDS: DOXYCYCLINE 100 MG/NS 100 ML 100 MG/100 ML BAG IVPB ×2 (08:10→20:24)
[2021-11-19] MEDS: NOREPINEPHRINE 8 MG/D5W 250 ML 8 MG/250 ML BAG 9.38 MG IV CONT (08:10)
[2021-11-19] MEDS: cefTRIAXone 2 GM in SODIUM CHLORIDE 0.9% IV 100 ML 200 ML IVPB (08:10)
[2021-11-19] MEDS: ENOXAPARIN 30 MG/0.3 ML SYRINGE SUB-Q (08:10)
[2021-11-19] MEDS: FAMOTIDINE 20 MG/2 ML VIAL IV PUSH ×2 (08:11→20:30)
[2021-11-19 08:12] LABS: Lactic Acid Reflex 2.1 mmol/L (0.7-2.0)
[2021-11-19 08:28] LABS: Glucose Point of Care 158 mg/dl (65-105)
[2021-11-19] MEDS: IPRATROPIUM BR 0.02% INH SOLN 0.5 MG/2.5 ML VIAL INHALATION ×3 (08:29→20:00)
[2021-11-19] MEDS: ALBUTEROL SULFATE NEB 2.5 MG/3 ML INH INHALATION ×3 (08:29→20:00)
[2021-11-19] MEDS: SODIUM CHLORIDE 0.9% IV 1,000 ML 999 ML IV CONT ×2 (08:36→11:25)
[2021-11-19] MEDS: EPINEPHrine INJ 1 MG in DEXTROSE 5% IN WATER 250 ML 15.06 MG IV CONT ×2 (08:51→20:49)
[2021-11-19 09:06] LABS: Procalcitonin 0.1 ng/mL
[2021-11-19] MEDS: PERFLUTREN LIPID MICROSPHERES 1.5 ML VIAL DILUTED TO 10 ML TOTAL VOLUME IV PUSH (09:07)
--- NOTE | 2021-11-19 09:08 | IVDEFINITY ---
Prior to administration of IV Definity the patient was educated on the risks and benefits of the imaging enhancing agent including potential adverse side effects. The patient verbalized understanding. Allergies were verified. No exclusion criteria were identified and at least one of the following inclusion criteria were met: 1) physician request, 2) patient technically difficult to image (per the [place] [employer] guidelines of two or more segments not discernable within the apical view), or 3) questionable left ventricular function. ?
[2021-11-19] MEDS: HYDROCORTISONE SODIUM SUCCINATE 100 MG/2 ML VIAL IV PUSH ×3 (10:18→23:55)
--- NOTE | 2021-11-19 10:20 | PM.IMPN ---
Progress Note: A&P Assessment and Plan (1) Respiratory failure requiring intubation: Code(s): J96.90 - Respiratory failure, unspecified, unspecified whether with hypoxia or hypercapnia Status: Acute Assessment and Plan: Acute multifactorial Respiratory failure secondary to COPD,CHF and possible community-acquired pneumonia Continue full mechanical ventilation support to prevent hypoxemia/hypercarbia and end organ damage. PCXR reviewed and will repeat in am ABG reviewed.? Respiratory rate increased to 20, peep increased to 8, FiO2 has been weaned down to 65%.? Repeat ABG later today Low tidal volume ventilation strategy to prevent volutrauma Steroids, Bronchodilators Empiric Rocephin and doxycycline Blood and sputum cultures Further Lasix on hold due to shock Multifactorial secondary to cardiogenic, possible sepsis, positive pressure ventilation, hypoxia Central venous catheter was placed emergently on arrival to ICU as patient was hypotensive and patient was started on vasopressors Currently on Levophed and epinephrine drip Repeat echo is ordered 1 L IVF bolus given earlier and will give another 1 L at this time 25% albumin Add stress dose steroids Appreciate critical care consultation and geophysical data technician management (2) Aortic regurgitation: Code(s): I35.1 - Nonrheumatic aortic (valve) insufficiency Status: Acute (3) Acute respiratory failure with hypoxia: Code(s): J96.01 - Acute respiratory failure with hypoxia Status: Acute (4) Protein-calorie malnutrition, moderate: Code(s): E44.0 - Moderate protein-calorie malnutrition Status: Acute (5) Combined systolic and diastolic congestive heart failure: Qualifiers: Heart failure chronicity: acute on chronic Qualified Code(s): I50.43 - Acute on chronic combined systolic (congestive) and diastolic (congestive) heart failure Code(s): I50.40 - Unspecified combined systolic (congestive) and diastolic (congestive) heart failure Status: Acute (6) Irregular heart rhythm: Code(s): I49.9 - Cardiac arrhythmia, unspecified Status: Acute (7) Acidosis, metabolic, with respiratory acidosis: Code(s): E87.4 - Mixed disorder of acid-base balance Status: Acute Plan Extremely poor prognosis Family wants to watch patient on ventilator for 24-48 hours DVT prophylaxis with lovenox GI prophylaxis with pepcid Nutrition: NPO Code Status: DNR Subjective Date/time seen: 11/19/21 10:20 Interval history: Int/sedated. Family at bedside. Review of Systems Review of Systems: ROS unobtainable: Yes unobtainable due to endotracheal tube Exam Narrative: General: Pt is sedated, intubated and on mechanical ventilation Lungs/Chest: Trachea central decreased BS B/L throughout No significant crackles or wheezing. Cardiac: RRR. Normal S1 S2. Diastolic murmurs Abdomen: Cachectic. Soft. NT. ND. Extremities: No clubbing, cyanosis or edema. Warm : Lynn in place Neurologic: Unable to assess due to sedation. Objective Data Vital Signs Vital Signs: Vital Signs - 24 hr 11/19/21 04:21 11/19/21 04:52 11/19/21 04:35 Temperature Pulse Rate 110 H 91 91 Respiratory Rate 38 H 16 Blood Pressure 128/77 115/51 L Pulse Oximetry 100 Oxygen Delivery Mechanical Ventilation Fraction of Inspired Oxygen 100 11/19/21 05:19 11/19/21 05:50 11/19/21 07:12 Temperature 97.1 F L Pulse Rate 88 94 94 Respiratory Rate 16 16 Blood Pressure Pulse Oximetry 100 Oxygen Delivery Mechanical Ventilation Fraction of Inspired Oxygen 70 11/19/21 04:40 11/19/21 06:50 11/19/21 07:12 Temperature 97.1 F L Pulse Rate 123 H Respiratory Rate 18 Blood Pressure 117/39 L Pulse Oximetry Oxygen Delivery Mechanical Ventilation Fraction of Inspired Oxygen 100 11/19/21 07:43 11/19/21 07:48 11/19/21 08:30 Temperature Pulse Rate 78 82 73 Respiratory Rate 20 20 Blood Pressure 1
[2021-11-19 10:49] LABS: Reflex Lactic Acid Yes or No Add Lactic
--- NOTE | 2021-11-19 11:16 | WPDCNINT ---
Assessment and Plan Assessment and plan (1) Respiratory failure: Code(s): J96.90 - Respiratory failure, unspecified, unspecified whether with hypoxia or hypercapnia Status: Acute Assessment and Plan: Acute multifactorial Respiratory failure secondary to COPD,CHF and possible community-acquired pneumonia Continue full mechanical ventilation support to prevent hypoxemia/hypercarbia and end organ damage. PCXR reviewed and will repeat in am ABG reviewed. Respiratory rate increased to 20, peep increased to 8, FiO2 has been weaned down to 65%. Repeat ABG later today Low tidal volume ventilation strategy to prevent volutrauma Steroids, Bronchodilators Empiric Rocephin and doxycycline Blood and sputum cultures Further Lasix on hold due to shock (2) COPD (chronic obstructive pulmonary disease): Code(s): J44.9 - Chronic obstructive pulmonary disease, unspecified Status: Acute Assessment and Plan: See above (3) Shock: Code(s): R57.9 - Shock, unspecified Status: Acute Assessment and Plan: Multifactorial secondary to cardiogenic, possible sepsis, positive pressure ventilation, hypoxia Central venous catheter was placed emergently on arrival to ICU as patient was hypotensive and patient was started on vasopressors Currently on Levophed and epinephrine drip Repeat echo is ordered 1 L IVF bolus given earlier and will give another 1 L at this time 25% albumin Add stress dose steroids (4) Aortic regurgitation: Code(s): I35.1 - Nonrheumatic aortic (valve) insufficiency Status: Acute Assessment and Plan: See above repeat echo is pending (5) Combined systolic and diastolic congestive heart failure: Qualifiers: Heart failure chronicity: acute on chronic Qualified Code(s): I50.43 - Acute on chronic combined systolic (congestive) and diastolic (congestive) heart failure Code(s): I50.40 - Unspecified combined systolic (congestive) and diastolic (congestive) heart failure Status: Acute Assessment and Plan: See above (6) Elevated troponin: Code(s): R77.8 - Other specified abnormalities of plasma proteins Status: Acute Assessment and Plan: Likely demand mediated ischemia Add aspirin Continues to troponin Echo is ordered EKG reviewed Consult cardiology (7) Acidosis, metabolic, with respiratory acidosis: Code(s): E87.4 - Mixed disorder of acid-base balance Status: Acute Assessment and Plan: Respiratory rate increased to 20 Repeat ABG later today (8) Protein-calorie malnutrition, moderate: Code(s): E44.0 - Moderate protein-calorie malnutrition Status: Acute Assessment and Plan: Patient appears cachectic and malnourished Will start tube feeds once patient is hemodynamically stable (9) KENNY (acute kidney injury): Code(s): N17.9 - Acute kidney failure, unspecified Status: Acute Assessment and Plan: Likely multifactorial secondary to hypotension, hypoxia Monitor urine output electrolytes and creatinine Check CK level If kidney function continues to deteriorate will consider imaging and nephrology consult Check urine electrolytes Plan DVT prophylaxis -Lovenox Stress ulcer prophylaxis -Pepcid Nutrition -NPO Code Status -patient is DNR I had extensive discussion with patient's 2 daughter at bedside and updated them with patient's current status including history failure, heart failure, heart valve abnormalities, COPD possible pneumonia, KENNY and shock. I updated them that their mother is in critical condition with guarded prognosis. They do not feel the patient would want CPR in this current situation. I answered all their questions Total Critical Care Time - 35 minutes Due to a high probability of clinically significant, life threatening deterioration, the patient required my highest level of preparedness to intervene emergently and I personally spent this criti
[2021-11-19] MEDS: MINERAL OIL/WHITE PETROLATUM OINTMENT 1 APPLIC EACH EYE ×2 (11:21→20:34)
--- NOTE | 2021-11-19 11:31 | WPDPROCEDUR ---
Procedures Central Line Placement Right IJ: Central Line Date: 11/19/21 Central Line Time: 07:30 Discussed w/ the patient/family/POA,the placement of a central venous catheter, including its clinical necessity/indication & associated potential risks, benifits and alternatives.: Yes The patient/family/POA understand(s) and acknowledge(s) the need to proceed with central venous catheter insertion as an important element of the patient's clinical management.: Yes Consent: I have discussed with the patient and/or surrogate, the non-emergent placement of a central venous catheter, including its clinical necessity/indication and associated potential risks and complications. The patient and/or surrogate understand(s) and acknowledge(s) the need to proceed with central venous catheter insertion as an important element of the patient's clinical management. Time Out Performed: Yes Patient Position: supine Patient placed on monitor/pulse ox: Yes Provider Prep: mask, sterile gown, sterile gloves, Max. sterile barrier precautions, cap and hand hygiene with conventional soap/water or alcohol based hand rub Central line prep: 2% Chlorhexidine scrub Sterile US Technique with sterile gel/sterile probe covers: Yes Central line lumen inserted: triple Length (cm): 16 Depth of Insertion (cm): 15 Post Procedure: sutured in place, good blood return, all ports aspirated, flushed, capped, transparent dressing, hemostatic product, antimicrobial product and aseptic technique maintained throughout procedure Post procedure x-ray: tip of catheter in good position and no pneumothorax seen Patient tolerated procedure: well Complications: none
[2021-11-19] MEDS: VASOPRESSIN INJ 100 UNITS in DEXTROSE 5% 95 ML IV CONT (11:45)
[2021-11-19 12:02] LABS: Base Excess ABG -9.5 mEq/l (+/-2.0); Fractional Inspired Oxygen 65 %; HCO3 ABG 17.2 mEq/l (22.0-26.0); Oxygen Content ABG 20.2 %vol (16.0-22.0); Oxygen Saturation ABG 97.6 % (95.0-100.0); PCO2 ABG 40.4 mmHg (35.0-45.0); PO2 ABG 116.5 mmHg (80.0-100.0); PO2 FiO2 Ratio Arterial Blood 1.79 %; Total Hemoglobin 14.7 g/dL (12.0-18.0)
[2021-11-19 12:05] LABS: Arterial Blood Gas PEEP 8 cmH2O; Arterial Blood Gas Tidal Volume 350 ml; Arterial Blood Gas Vent Mode CMV; Arterial Blood Gas Ventilator rate 20 /MIN; Device VENTILATOR; Site Drawn ARTLINE; pH ABG 7.247 (7.350-7.450)
[2021-11-19 12:17] LABS: Creatine Kinase 343 U/L (30-135); Lactic Acid 2.1 mmol/L (0.7-2.0)
[2021-11-19 12:33] LABS: Creatinine Urine 21.9 mg/dL
[2021-11-19 12:41] LABS: Sodium Urine Random 106 meq/L
[2021-11-19 13:04] LABS: Glucose Point of Care 117 mg/dl (65-105)
--- NOTE | 2021-11-19 13:07 | ECG_ITS ---
Measurements Intervals [place] Rate: 70 P: 68 MA: 137 QRS: -15 QRSD: 94 T: -80 QT: 378 QTc: 409 Interpretive Statements SINUS RHYTHM WITH FREQUENT VENTRICULAR PREMATURE COMPLEXES POSSIBLE ANTERIOR INFARCTION, AGE INDETERMINATE ST ABNORMALITY CONSIDER ISCHEMIA INFERIOR AND ANTEROLATERAL LEADS ABNORMAL ECG COMPARED TO ECG 11/19/2021 04:19:57 NO SIGNIFICANT CHANGES Electronically Signed On 11-19-2021 18:27:11 CDT by Jose Mendenhall M.D.
--- NOTE | 2021-11-19 13:27 | PM.EVENT ---
Event Note Event Note Event Note: Repeat troponin came back high at 9. Repeat EKG abnormal but no ST elevation. Cardiology has been consulted and notified. Echo done and report pending.
[2021-11-19] MEDS: NOREPINEPHRINE 8 MG/D5W 250 ML 8 MG/250 ML BAG 46.88 MG IV CONT (13:32)
[2021-11-19] MEDS: ASPIRIN 325 MG TABLET FEED TUBE (13:33)
[2021-11-19] MEDS: SODIUM BICARBONATE 8.4% 150 MEQ in WATER, STERILE FOR INJECTION 950 ML 100 MEQ IV CONT (13:46)
[2021-11-19] MEDS: CENTRAL LINE FLUSH 10 ML IV PUSH ×3 (13:51→20:31)
--- NOTE | 2021-11-19 14:43 | PM.CNCAR ---
Assessment and Plan Assessment and plan (1) Combined systolic and diastolic congestive heart failure: Qualifiers: Heart failure chronicity: acute on chronic Qualified Code(s): I50.43 - Acute on chronic combined systolic (congestive) and diastolic (congestive) heart failure <PARIS Solorio - Last Filed: 11/19/21 16:10> Code(s): I50.40 - Unspecified combined systolic (congestive) and diastolic (congestive) heart failure <PARIS Solorio - Last Filed: 11/19/21 16:10> Status: Acute <PARIS Solorio - Last Filed: 11/19/21 16:10> Assessment and Plan: Longstanding systolic and diastolic heart failure. Presumed to be nonischemic in etiology. Recent echocardiogram showing EF 20 - 25%. She also has moderate aortic valve regurgitation. On medical therapy as outpatient with Entresto, spironolactone, and coreg Holding these because of hypotension and use of vasopressors Does not look to be in decompensated heart failure on exam at this time Continue supportive care <PARIS Solorio - Last Filed: 11/19/21 16:10> (2) Acute respiratory failure with hypoxia: Code(s): J96.01 - Acute respiratory failure with hypoxia <PARIS Solorio - Last Filed: 11/19/21 16:10> Status: Acute <PARIS Solorio - Last Filed: 11/19/21 16:10> Assessment and Plan: Secondary to COPD, perhaps mild CHF, possible pneumonia. She is requiring support with mechanical ventilation. Management per critical care team. <PARIS Solorio - Last Filed: 11/19/21 16:10> (3) Aortic regurgitation: Code(s): I35.1 - Nonrheumatic aortic (valve) insufficiency <PARIS Solorio - Last Filed: 11/19/21 16:10> Status: Acute <PARIS Solorio - Last Filed: 11/19/21 16:10> Assessment and Plan: Moderate. Not a candidate for invasive workup. <PARIS Solorio - Last Filed: 11/19/21 16:10> (4) Elevated troponin: Code(s): R77.8 - Other specified abnormalities of plasma proteins <Ivon TompkinsPelon PARIS Hill - Last Filed: 11/19/21 16:10> Status: Acute <Ivon Simón PARIS Hill - Last Filed: 11/19/21 16:10> Assessment and Plan: Troponin levels drawn in the setting of acute hypoxic respiratory failure. 0.042 to 9.830 this morning. probably type 2 VA secondary to respiratory failure, hypotension. However, cannot rule out underlying coronary artery disease. Nevertheless, in the setting of critical illness requiring hemodynamic support with epinephrine, norepinephrine, and vasopressin she is not a candidate for invasive angiography at this time. Continue conservative management. <PARIS Solorio - Last Filed: 11/19/21 16:10> Troponin levels drawn in the setting of acute hypoxic respiratory failure. 0.042 to 9.830 this morning. probably type 2 VA secondary to respiratory failure, hypotension. However, cannot rule out underlying coronary artery disease. Nevertheless, in the setting of critical illness requiring hemodynamic support with epinephrine, norepinephrine, and vasopressin she is not a candidate for invasive angiography at this time. Continue conservative management. <Jose Mendenhall MD - Last Filed: 11/19/21 17:15> (5) Shock: Code(s): R57.9 - Shock, unspecified <PARIS Solorio - Last Filed: 11/19/21 16:10> Status: Acute <PARIS Solorio - Last Filed: 11/19/21 16:10> Assessment and Plan: Attending Addendum: I have personally seen and examined this patient at bedside. I agree with the above documentation and plan of care as outlined. -patient is a complicated 76-year-old female with a past medical history significant for longstanding dilated cardiomyopathy, moderate aortic valve regurgitation, severe emphysema, tobacco abuse recently admitted in August with decompensated heart failure requiring BiPAP. Patient was diuresed and st
[2021-11-19 15:05] LABS: Anion Gap 8 mmol/L (8-16); Blood Urea Nitrogen 15 mg/dL (7-17); Calcium 7.1 mg/dL (8.4-10.2); Carbon Dioxide 19 mmol/L (22-30); Chloride 107 mmol/L (98-107); Estimated CRCL calculation 21 ml/min; Estimated Glomerular Filt Rate 40; Glucose 141 mg/dL (65-110); Magnesium 1.7 mg/dL (1.6-2.3); Potassium 5.8 mmol/L (3.4-5.0); Sodium 134 mmol/L (137-145)
[2021-11-19] MEDS: MAGNESIUM SULF 1 GM/D5W 100 ML 1 GM/100 ML BAG IVPB (15:28)
[2021-11-19] MEDS: CALCIUM GLUC 2,000 MG/NS 100ML 2,000 MG/100 ML BAG 100 MG IVPB (15:29)
[2021-11-19] MEDS: SODIUM ZIRCONIUM CYCLOSILICATE 10 GM POWD.PACK PO ×2 (15:35→18:39)
[2021-11-19] MEDS: DEXTROSE 50% 25 GM/50 ML SYRINGE IV PUSH (15:44)
[2021-11-19] MEDS: INSULIN HUMAN REGULAR (*BKC) 100 UNITS/ML IV PUSH (15:44)
[2021-11-19] MEDS: SODIUM BICARBONATE 8.4% 50 MEQ/50 ML SYRINGE 100 MEQ IV PUSH (15:44)
[2021-11-19 16:58] LABS: Glucose Point of Care 138 mg/dl (65-105)
[2021-11-19] MEDS: NOREPINEPHRINE 8 MG/D5W 250 ML 8 MG/250 ML BAG 30 MG IV CONT (18:42)
[2021-11-19 20:34] LABS: Glucose Point of Care 111 mg/dl (65-105)
[2021-11-19] MEDS: NOREPINEPHRINE 8 MG/D5W 250 ML 8 MG/250 ML BAG 26.25 MG IV CONT (20:48)
[2021-11-20] VITALS (14 sets, daily range): BP systolic 60–97; BP diastolic 42–59; PULSE 0–88; RESP 0–21; TEMP 36.1–36.4; O2SAT 89–100
[2021-11-20 00:01] LABS: Glucose Point of Care 83 mg/dl (65-105)
[2021-11-20] MEDS: SODIUM BICARBONATE 8.4% 150 MEQ in WATER, STERILE FOR INJECTION 950 ML 100 MEQ IV CONT (00:18)
[2021-11-20] MEDS: ALBUTEROL SULFATE NEB 2.5 MG/3 ML INH INHALATION (01:37)
[2021-11-20] MEDS: IPRATROPIUM BR 0.02% INH SOLN 0.5 MG/2.5 ML VIAL INHALATION (01:37)
--- NOTE | 2021-11-20 03:21 | PC.NURSE ---
Pt's systolic blood pressure quickly dropped into the 60s. All pressors maxed out. Dr. Tripathi at bedside. Family was called to come to see the pt. Pt before family could arrive. Two RNs and Dr. Tripathi verified pt was at 0256.
--- NOTE | 2021-11-20 05:22 | PC.NURSE ---
Pt transported to [facility]. All IVs and arterial line removed with tip intact prior to disposition.
--- NOTE | 2021-11-30 17:50 | PM.DDS ---
Discharge Summary Date and Time Date of : 11/20/21 Time of : 02:56 Provider Pronounced By: casandra Probable Cause of Probable Cause of : MS Summary Hospital Course: 76-year-old female with a past medical history of emphysema, moderate aortic valve regurgitation and severe systolic and diastolic heart failure who presented to the ER via EMS with respiratory distress.? When the patient arrived to the ER she was satting 86% on 15 L non-rebreather with respiratory rate in the 50s to 60s.? Patient's EKG was demonstrating significant ectopy and rhythm changes including multiple runs of V-tach.? I think the patient's underlying rhythm may have been AFib with frequent PVCs.? Family reports the patient developed rapid onset of dyspnea and was speaking in 1-2 of were since is when she arrived to the ER.? She had not reported any chest pain to the family.? Patient has no lower extremity swelling.? Her temperature was normal on arrival.? At the time my evaluation the patient was intubated and sedated in the ER.? Family members report the patient is not a candidate for valve repair.? They know that the patient would not want to be on a ventilator long-term.? I had a discussion with family regarding long-term prognosis and at this time they do not want the patient to have CPR if she were to have cardiac arrest.? They would like to leave her on the ventilator and see if she could be weaned from the ventilator in the near future.? Overnight, patient experienced a bump in her troponin. ECG was abnormal, concerning for ischemia. Patient then had sudden and severe hypotension followed by cardiac arrest and . Additional Data Confirmation of as documented by pronouncing clinician: Pupillary Reflex, Palpable Pulses, Response to Stimuli, Heart Tones and Breath Sounds Name of Provider Notified: casandra Turner Provider Notified: 03:14 Provider Requests Autopsy: No Family Requests Autopsy: No Medical Investigator Notified: Yes Date [facility] Notified of : 11/20/21 Time [facility] Notified of : 03:15
== END 2021-11-20 02:56 | disposition expired ==
LOC: ANHED 04:51 → ANHICU 06:31
PROVIDERS: Internal Medicine; Nurse Practitioner; Admitting Provider Internal Medicine; Emergency Provider Emergency Medicine; PCP Internal Medicine; Visit Provider Internal Medicine
DX: I50.43 Acute on chronic combined systolic (congestive) and diastolic (congestive) heart failure (principal); I21.4 Non-ST elevation (NSTEMI) myocardial infarction; A41.9 Sepsis, unspecified organism; J96.21 Acute and chronic respiratory failure with hypoxia; J96.22 Acute and chronic respiratory failure with hypercapnia; J18.9 Pneumonia, unspecified organism; R65.21 Severe sepsis with septic shock; R64 Cachexia; Z68.1 Body mass index [BMI] 19.9 or less, adult; E44.0 Moderate protein-calorie malnutrition; N17.9 Acute kidney failure, unspecified; E87.4 Mixed disorder of acid-base balance; I47.2 Ventricular tachycardia; I42.0 Dilated cardiomyopathy; Z20.822 Contact with and (suspected) exposure to COVID-19; I35.1 Nonrheumatic aortic (valve) insufficiency; I49.3 Ventricular premature depolarization; I95.89 Other hypotension; I46.2 Cardiac arrest due to underlying cardiac condition; R57.0 Cardiogenic shock; J43.9 Emphysema, unspecified; E78.5 Hyperlipidemia, unspecified; I73.9 Peripheral vascular disease, unspecified; Z87.891 Personal history of nicotine dependence; Z66 Do not resuscitate; I48.91 Unspecified atrial fibrillation
CPT/HCPCS: 31500; 36415; 36600; 70450; 80048; 80053; 81001; 82550; 82570; 82805; 82948; 83605; 83735; 83880; 84145; 84300; 84484; 85025; 85610; 85730; 87040; 93005; 93308; 94640; 96374; 96375; 99291; A9270; C1751; C8924; C9803; J0171; J0610; J0696; J1650; J1720; J1815; J1940; J2250; J2405; J3010; J3475; J7030; J7060; Q9957; U0003; U0005